=== PATIENT | female | born 1955 | race Caucasian/White ===

== ENCOUNTER 2016-08-10 15:08 | Emergency (ER) | payer OTHER ==
[~2016-08-10 15:08] MED LIST: ASPI1TAB7 PO; CYMB30CA PO; LEVO112T2 PO; LISI-363 PO; TYLE500T PO
[2016-08-10 15:11] VITALS: BP 131/85; PULSE 70; RESP 16; TEMP 98.1; O2SAT 97
[2016-08-10] MEDS ORDERED: SODIUM CHLOR 0.9% 1000 ML INJ 1,000 ML IV ONE ×2 (15:21→16:45)
[2016-08-10] MEDS ORDERED: KETOROLAC TROMETHAMINE 30 MG/ML (IVP) VIAL IVP ONE (15:30)
[2016-08-10] MEDS ORDERED: SODIUM CHLORIDE 0.9% FLUSH 5 ML FLUSH IVF PRN (15:30)
--- NOTE | 2016-08-10 15:39 | PD ---
HPI Chief Complaint: Flank/Kidney Pain Time Seen by Provider: 15:21 Travel History International Travel<30 days: No Contact w/Intl Traveler<30days: No Traveled to known affect area: No History of Present Illness HPI 60 y/o female presents with back pain over the past couple of days. She has history of kidney stones. She denies other associated symptoms with this. She states that this feels similar to prior kidney stones. Quality pain is sharp. Severity is moderate. Pain is worse with movement. She denies other modifying factors. She states she does also have history of fibromyalgia. PFSH Past Medical History Diabetes: Yes (diet control) Diminished Hearing: No Hypertension: Yes Kidney Stones: Yes Respiratory: No Thyroid Disease: Yes (hypothyroid) Past Surgical History Cholecystectomy: Yes Endocrine Surgery: Yes (THYROIDECTOMY) Genitourinary Surgery: Yes (KIDNEY STONE) Gynecologic Surgery: Yes (C SECTION, BREAST TUMOR 1985) Social History Alcohol Use: No Tobacco Use: No Substance Use: No Allergies-Medications (Allergen,Severity, Reaction): Coded Allergies: Hydrochlorothiazide (Unverified Allergy, Severe, lip swelling, 08/10/16) Tamsulosin (Verified Allergy, Severe, 08/10/16) Sulfa (Unverified Allergy, Mild, 08/10/16) Reported Meds & Prescriptions Reported Meds & Active Scripts Active Percocet (Oxycodone-Acetaminophen) 5-325 mg Tab 1 Tab PO Q6H PRN Reported Lisinopril 20 Mg Tab 20 Mg PO DAILY Levothyroxine (Levothyroxine Sodium) 112 Mcg Tab 112 Mcg PO DAILY Vitamin D3 (Cholecalciferol) 1,000 Unit Chew 1,000 Units PO DAILY Omeprazole 20 Mg Tab 20 Mg PO DAILY Review of Systems Except as stated in HPI: all other systems reviewed are Neg Physical Exam Narrative GENERAL: Well-nourished, well-developed patient. SKIN: Warm and dry. HEAD: Normocephalic and atraumatic. EYES: No injection or drainage. ENT: No nasal drainage noted. NECK: Supple, trachea midline. CARDIOVASCULAR: Regular rate and rhythm RESPIRATORY: Breath sounds equal bilaterally. No accessory muscle use. GASTROINTESTINAL: Abdomen soft, non-tender, nondistended. BACK: Nontender without obvious deformity in midline, no CVA tenderness. NEUROLOGICAL: Awake and alert. Motor and sensory grossly within normal limits. Normal speech. Data Data Last Documented VS Vital Signs Date Time Temp Pulse Resp B/P Pulse Ox O2 Delivery O2 Flow Rate FiO2 08/10/16 15:49 65 16 121/60 97 Room Air 08/10/16 15:11 98.1 Orders Complete Blood Count With Diff (08/10/16 15:21) Comprehensive Metabolic Panel (08/10/16 15:21) Urinalysis - C+S If Indicated (08/10/16 15:21) Ct Abd/Pel W/O Iv Contrast (08/10/16 15:21) Ecg Monitoring (08/10/16 15:21) Iv Access Insert/Monitor (08/10/16 15:21) Ketorolac Inj (Toradol Inj) (08/10/16 15:30) Sodium Chloride 0.9% Flush (Ns Flush) (08/10/16 15:30) Sodium Chlor 0.9% 1000 Ml Inj (Ns 1000 M (08/10/16 15:21) Sodium Chlor 0.9% 1000 Ml Inj (Ns 1000 M (08/10/16 16:45) Labs Laboratory Tests Test 08/10/16 08/10/16 15:50 16:45 White Blood Count 10.2 TH/MM3 Red Blood Count 4.56 MIL/MM3 Hemoglobin 13.1 GM/DL Hematocrit 39.2 % Mean Corpuscular Volume 86.0 FL Mean Corpuscular Hemoglobin 28.8 PG Mean Corpuscular Hemoglobin 33.5 % Concent Red Cell Distribution Width 13.9 % Platelet Count 235 TH/MM3 Mean Platelet Volume 7.9 FL Neutrophils (%) (Auto) 58.9 % Lymphocytes (%) (Auto) 29.3 % Monocytes (%) (Auto) 9.0 % Eosinophils (%) (Auto) 1.9 % Basophils (%) (Auto) 0.9 % Neutrophils # (Auto) 6.0 TH/MM3 Lymphocytes # (Auto) 3.0 TH/MM3 Monocytes # (Auto) 0.9 TH/MM3 Eosinophils # (Auto) 0.2 TH/MM3 Basophils # (Auto) 0.1 TH/MM3 CBC Comment DIFF FINAL Differential Comment Sodium Level 137 MEQ/L Potassium Level 4.3 MEQ/L Chloride Level 106 MEQ/L Carbon Dioxide Level 23.4 MEQ/L Anion Gap 8 MEQ/L Blood Urea Nitrogen 16 MG/DL Creatinine 0.70 MG/DL Estimat Glomerular Filtration 85 ML/MIN Rate Random Glucose 88 MG/DL Calcium Level 9.0 MG/DL Total Bilirubin 0.3 MG/DL Aspartate Amino Transf 19 U/L (AST/SGOT) Alanine Aminotransferase 33 U/L (ALT/SGPT) Alkaline Phosphatase 106 U/L Total Protein 7.8 GM/DL Albumin 3.4 GM/DL Urine Color LIGHT-YELLOW Urine Turbidity CLEAR Urine pH 5.5 Urine Specific Helix 1.007 Urine Protein NEG mg/dL Urine Glucose (UA) NEG mg/dL Urine Ketones NEG mg/dL Urine Occult Blood SMALL Urine Nitrite NEG Urine Bilirubin NEG Urine Urobilinogen LESS THAN 2.0 MG/DL Urine Leukocyte Esterase NEG Urine RBC 5 /hpf Urine WBC LESS THAN 1 /hpf Urine Squamous Epithelial 1 /hpf Cells Urine Bacteria RARE /hpf Microscopic Urinalysis Comment CULT NOT INDICATED MDM Medical Decision Making Medical Screen Exam Complete: Yes Emergency Medical Condition: Yes Medical Record Reviewed: Yes (past history confirmed) Interpretation(s) CBC & BMP Diagram 08/10/16 15:50 Last 24 hours Impressions Abdomen/Pelvis CT 08/10/16 1521 Signed Impressions: Service Date/Time: Friday, August 10, 2016 15:51 - CONCLUSION: 1. Approximately 4.5 mm x 3.5 mm calculus in the proximal left ureter with a minimal left-sided obstructive uropathy and mild hydronephrosis. No significant perinephric stranding. No other renal or ureteral calculi identified. Davie Mata MD Differential Diagnosis Musculoskeletal, UTI, kidney stone Narrative Course Will check blood work, urinalysis, CT scan abdominal pelvis and dose with Toradol and reevaluate Patient with left proximal ureteral stone. Pain is improved. No emesis here. Patient denies any new complaints and states that they are feeling better. Patient happy with care, all questions answered. Patient knows that follow up is incumbent on them and to return to the emergency room immediately if new or worsening symptoms develop. Patient given strict return precautions, vitals reviewed and are normal, agrees to further workup as an outpatient. Given allergies will hold Flomax and will provide with Percocet for pain control Diagnosis Primary Impression: Kidney stone on left side Referrals: Urologist call for appointment Patient Instructions: General Instructions Additional Instructions: Return as needed, Percocet as needed for severe pain, keep hydrated, strain urine Med/Other Pt SpecificInfo: Prescription(s) given Scripts Oxycodone-Acetaminophen (Percocet)5-325 mg Tab1 Tab PO Q6H PRN (PAIN) #15 TAB Prov:Susie White MD 08/10/16 Disposition: 01 DISCHARGE HOME Condition: Stable Susie White MD Aug 10, 2016 15:38 Susie White MD Aug 10, 2016 15:38
[2016-08-10] MEDS ORDERED: LISI-515 PO (15:47)
[2016-08-10] MEDS ORDERED: LEVO-168 PO (15:47)
[2016-08-10] MEDS ORDERED: CHOL100025 PO (15:47)
[2016-08-10] MEDS ORDERED: OMEP20TA PO (15:47)
[2016-08-10 15:49] VITALS: BP 121/60; PULSE 65; RESP 16; O2SAT 97
[2016-08-10 15:59] LABS: BASOPHIL # 0.1 TH/MM3 (0-0.2); BASOPHIL % 0.9 % (0.0-2.0); EOSINOPHIL # 0.2 TH/MM3 (0-0.4); EOSINOPHIL % 1.9 % (0.0-4.0); HEMATOCRIT 39.2 % (35.0-46.0); HEMO FLAGS DIFF FINAL; LYMPH % 29.3 % (9.0-44.0); MEAN CORPUSCULAR HEMOGLOBIN 28.8 PG (27.0-34.0); MEAN CORPUSCULAR HGB CONC 33.5 % (32.0-36.0); NEUT % 58.9 % (16.0-70.0); PLATELET COUNT 235 TH/MM3 (150-450); RED BLOOD COUNT 4.56 MIL/MM3 (4.00-5.30); RED CELL DISTRIBUTION WIDTH 13.9 % (11.6-17.2); WHITE BLOOD COUNT 10.2 TH/MM3 (4.0-11.0)
[2016-08-10 16:15] LABS: ALT (GPT) 33 U/L (10-53); ANION GAP 8 MEQ/L (5-15); AST (GOT) 19 U/L (15-37); BICARBONATE 23.4 MEQ/L (21.0-32.0); BLOOD UREA NITROGEN 16 MG/DL (7-18); CHLORIDE 106 MEQ/L (98-107); GLOMERULAR FILTRATION RATE 85 ML/MIN (>89); POTASSIUM 4.3 MEQ/L (3.5-5.1); SODIUM (NA) 137 MEQ/L (136-145)
[2016-08-10 16:17] LABS: ALKALINE PHOSPHATASE 106 U/L (45-117); TOTAL BILIRUBIN ADULT 0.3 MG/DL (0.2-1.0)
--- NOTE | 2016-08-10 16:17 | RADRPT ---
EXAM DATE/TIME: 08/10/2016 15:51 [facility] COMPARISON: No previous studies available for comparison. INDICATIONS : Left flank pain, history of renal calculi. ORAL CONTRAST: No oral contrast ingested. RADIATION DOSE: 20.59 CTDIvol (mGy) MEDICAL HISTORY : Renal calculi. Hypertension. Diabetes mellitus type 2. SURGICAL HISTORY : Cholecystectomy. section. ENCOUNTER: Initial ACUITY: 3 days PAIN SCALE: 7/10 LOCATION: Left flank TECHNIQUE: Volumetric scanning of the abdomen and pelvis was performed. Using automated exposure control and ad justment of the mA and/or kV according to patient size, radiation dose was kept as low as reasonably achievable to obtain optimal diagnostic quality images. FINDINGS: Bases are clear. No acute findings in the visualized liver, spleen, adrenals, right kidney or pancrea s. There is an approximately 4.5 mm x 3.5 mm calculus in the proximal left ureter with mild left hydr onephrosis and obstructive uropathy. No other ureteral or bladder calculi are identified. No free flu id. No adenopathy. CONCLUSION: 1. Approximately 4.5 mm x 3.5 mm calculus in the proximal left ureter with a minimal left-sided obstr uctive uropathy and mild hydronephrosis. No significant perinephric stranding. No other renal or uret eral calculi identified. Davie Mata MD on August 10, 2016 at 16:10 Board Certified Radiologist. This report was verified electronically.
[2016-08-10 17:12] LABS: BACTERIA, URINE RARE /hpf; BLOOD, URINE SMALL (NEG); COMMENT (UR) CULT NOT INDICATED; CULTURE IF INDICATED CULT NOT INDICATED; GLUCOSE,URINE NEG (NEG); KETONE, URINE NEG (NEG); NITRITE,URINE NEG (NEG); PH, URINE 5.5 (5.0-8.5); SQUAMOUS EPITHELIAL CELL URINE 1 /hpf (0-5); URINE COLOR LIGHT-YELLOW (YELLW/STRAW)
[2016-08-10] MEDS ORDERED: PERC5TAB12 PO (17:19)
[2016-08-10 18:36] VITALS: BP 125/72; PULSE 68; RESP 16; O2SAT 98
[2016-08-11] MEDS ORDERED: ACET-703 PO (09:52)
[2016-08-11] MEDS ORDERED: PERC5TAB12 PO (12:51)
[2016-10-16] MEDS ORDERED: VITA10004 PO (09:33)
[2016-10-25] MEDS ORDERED: TETA1INJ6 IM (12:22)
[2016-10-25] MEDS ORDERED: AMLO5TAB2 PO (12:22)
[2016-10-25] MEDS ORDERED: CIPRHC10A RIGHT EAR (12:22)
[2016-10-25] MEDS ORDERED: VENTAER INH (12:22)
[2016-10-25] MEDS ORDERED: LORA-361 PO (12:22)
[2016-10-29] MEDS ORDERED: AMLO5TAB2 PO (09:14)
[2016-11-29] MEDS ORDERED: CLAR10CA3 PO (08:18)
[2016-11-29] MEDS ORDERED: ACET-822 (08:18)
[2016-11-29] MEDS ORDERED: DULO1CAP2 PO (09:04)
[2016-12-16] MEDS ORDERED: AMLO10TA2 PO (09:04)
[2016-12-16] MEDS ORDERED: LEVO-168 PO (09:04)
== END 2016-08-10 18:37 | disposition home or self-care (01) ==
LOC: NEPA 15:08
DX: I10 Essential (primary) hypertension (principal); N20.0 Calculus of kidney
CPT/HCPCS: 74176; 80053; 81001; 85025; 96361; 96374; 99284; J1885; J7030

== ENCOUNTER 2016-08-11 08:09 | Emergency (ER) | payer OTHER ==
[~2016-08-11] VITALS: Ht 152.4 cm; Wt 100.0 kg
[~2016-08-11 08:09] MED LIST changes: -ASPI1TAB7 PO; +CHOL100025 PO; -CYMB30CA PO; +LEVO-168 PO; -LEVO112T2 PO; -LISI-363 PO; +LISI-515 PO; +OMEP20TA PO; +PERC5TAB12 PO; -TYLE500T PO
[2016-08-11 08:10] VITALS: BP 132/61; PULSE 61; RESP 18; O2SAT 98
[2016-08-11 08:11] VITALS: BP 184/98; PULSE 124; RESP 24; TEMP 98.3; O2SAT 95
[2016-08-11] MEDS ORDERED: SODIUM CHLOR 0.9% 1000 ML INJ 1,000 ML IV ONE (08:19)
--- NOTE | 2016-08-11 08:22 | PD ---
HPI Chief Complaint: Flank/Kidney Pain Time Seen by Provider: 08:17 Travel History International Travel<30 days: No Contact w/Intl Traveler<30days: No Traveled to known affect area: No History of Present Illness HPI This is a 60-year-old female who was seen yesterday for renal lithiasis, presents today with points of exacerbated pain. The patient states that she did not get her prescription filled for her Percocet that was prescribed yesterday. She reports severe pain in her left flank. No reported fevers, chills. PFSH Past Medical History Diabetes: Yes (diet control) Diminished Hearing: No Hypertension: Yes Kidney Stones: Yes Respiratory: No Thyroid Disease: Yes (hypothyroid) Past Surgical History Cholecystectomy: Yes Endocrine Surgery: Yes (THYROIDECTOMY) Genitourinary Surgery: Yes (KIDNEY STONE) Gynecologic Surgery: Yes (C SECTION, BREAST TUMOR 1985) Social History Alcohol Use: No Tobacco Use: No Substance Use: No Allergies-Medications (Allergen,Severity, Reaction): Coded Allergies: Hydrochlorothiazide (Unverified Allergy, Severe, lip swelling, 08/10/16) Tamsulosin (Verified Allergy, Severe, 08/10/16) Sulfa (Unverified Allergy, Mild, 08/10/16) Reported Meds & Prescriptions Reported Meds & Active Scripts Active Percocet (Oxycodone-Acetaminophen) 5-325 mg Tab 1 Tab PO Q6H PRN Reported Tylenol Extra Strength (Acetaminophen) 500 Mg Tab 1,000 Mg PO Q6HR PRN Lisinopril 20 Mg Tab 20 Mg PO DAILY Levothyroxine (Levothyroxine Sodium) 112 Mcg Tab 112 Mcg PO DAILY Vitamin D3 (Cholecalciferol) 1,000 Unit Chew 1,000 Units PO DAILY Omeprazole 20 Mg Tab 20 Mg PO DAILY Review of Systems Except as stated in HPI: all other systems reviewed are Neg General / Constitutional: No: Fever, Chills Gastrointestinal: Positive: Nausea, No: Vomiting Genitourinary: Positive: Flank Pain (flank), Other (history of renal colic) Musculoskeletal: Positive: Pain (left flank) Physical Exam Narrative GENERAL: Well-nourished, well-developed patient in obvious pain.. SKIN: Warm and dry. HEAD: Normocephalic/atraumatic. EYES: No scleral icterus. No injection or drainage. NECK: Supple, trachea midline. GASTROINTESTINAL: Abdomen soft, non-tender, nondistended. MUSCULOSKELETAL: Subjective left flank pain. BACK: Subjective left CVA pain. There is no tenderness on palpation. The patient states it's deep. Data Data Last Documented VS Vital Signs Date Time Temp Pulse Resp B/P Pulse Ox O2 Delivery O2 Flow Rate FiO2 08/11/16 10:00 68 17 133/64 97 Room Air 08/11/16 08:11 98.3 Orders Ecg Monitoring (08/11/16 08:19) Iv Access Insert/Monitor (08/11/16 08:19) Ketorolac Inj (Toradol Inj) (08/11/16 08:30) Ondansetron Inj (Zofran Inj) (08/11/16 08:30) Sodium Chloride 0.9% Flush (Ns Flush) (08/11/16 08:30) Sodium Chlor 0.9% 1000 Ml Inj (Ns 1000 M (08/11/16 08:19) Hydromorphone Pf Inj (Dilaudid Pf Inj) (08/11/16 09:30) MDM Medical Decision Making Medical Screen Exam Complete: Yes Emergency Medical Condition: Yes Differential Diagnosis Exacerbation of left ureteral calculus versus pyelonephritis versus muscle skeletal pain Narrative Course 6-year-old female with a history of kidney stones, seen yesterday diagnosed with a left ureteral calculus that was more than 5 mm, who presents with exacerbation of pain. The patient states that she did not fill her Percocet prescription that was prescribed yesterday because the pharmacy was closed. She reports pain and nausea. She states the pain is exactly like it was yesterday. She's been given Toradol 30 motor ID V times one dose followed by normal saline and 1 mg of Dilaudid. She is pain-free at this time. She wishes to be discharged home. She has misplaced her prescription so I will rewrite it. She is instructed to follow up with her urologist of her choice. Diagnosis Primary Impression: Kidney stone on left side Additional Impression: Left flank pain Additional Instructions: Drink plenty of fluid. Med/Other Pt SpecificInfo: Prescription(s) given Scripts Oxycodone-Acetaminophen (Percocet)5-325 mg Tab1 Tab PO Q6H PRN (PAIN) #15 TAB Prov:Dominic Olson MD 08/11/16 Disposition: 01 DISCHARGE HOME Condition: Stable Dominic Olson MD Aug 11, 2016 08:22
[2016-08-11] MEDS ORDERED: SODIUM CHLORIDE 0.9% FLUSH 5 ML FLUSH IVF PRN (08:30)
[2016-08-11] MEDS ORDERED: ONDANSETRON HCL 4 MG/2 ML VIAL IVP ONE (08:30)
[2016-08-11] MEDS ORDERED: KETOROLAC TROMETHAMINE 30 MG/ML (IVP) VIAL IVP ONE (08:30)
[2016-08-11] MEDS ORDERED: HYDROmorphone HCL PF 1 MG/ML VIAL IV PUSH ONE (09:30)
[2016-08-11] MEDS ORDERED: ACET-703 PO (09:52)
[2016-08-11 10:00] VITALS: BP 133/64; PULSE 68; RESP 17; O2SAT 97
[2016-08-11 12:00] VITALS: BP 130/75; PULSE 71; RESP 18; O2SAT 99
[2016-08-11] MEDS ORDERED: PERC5TAB12 PO (12:51)
[2016-08-11 13:29] VITALS: BP 129/72
[2016-10-16] MEDS ORDERED: VITA10004 PO (09:33)
[2016-10-25] MEDS ORDERED: LORA-361 PO (12:22)
[2016-10-25] MEDS ORDERED: AMLO5TAB2 PO (12:22)
[2016-10-25] MEDS ORDERED: TETA1INJ6 IM (12:22)
[2016-10-25] MEDS ORDERED: CIPRHC10A RIGHT EAR (12:22)
[2016-10-25] MEDS ORDERED: VENTAER INH (12:22)
[2016-10-29] MEDS ORDERED: AMLO5TAB2 PO (09:14)
[2016-11-29] MEDS ORDERED: CLAR10CA3 PO (08:18)
[2016-11-29] MEDS ORDERED: ACET-822 (08:18)
[2016-11-29] MEDS ORDERED: DULO1CAP2 PO (09:04)
[2016-12-16] MEDS ORDERED: AMLO10TA2 PO (09:04)
[2016-12-16] MEDS ORDERED: LEVO-168 PO (09:04)
== END 2016-08-11 13:30 | disposition home or self-care (01) ==
LOC: NEPE 08:09
DX: N20.0 Calculus of kidney (principal); E11.9 Type 2 diabetes mellitus without complications; I10 Essential (primary) hypertension; E03.9 Hypothyroidism, unspecified; Z87.442 Personal history of urinary calculi
CPT/HCPCS: 96361; 96374; 96375; 99283; J1170; J1885; J2405; J7030

== ENCOUNTER 2016-08-12 16:26 | Inpatient (IN) | payer OTHER ==
[~2016-08-12] VITALS: Ht 160 cm; Wt 100.0 kg
[~2016-08-12 16:26] MED LIST changes: +ACET-703 PO
[2016-08-12 16:27] VITALS: BP 160/70; PULSE 74; RESP 24; TEMP 97.6; O2SAT 97
[2016-08-12] MEDS ORDERED: ONDANSETRON HCL 4 MG/2 ML VIAL IM ONE (18:15)
[2016-08-12] MEDS ORDERED: KETOROLAC TROMETHAMINE 60 MG/2 ML (IM) VIAL IM ONE (18:15)
[2016-08-12 18:57] LABS: APTT (PATIENT) 28.1 SEC (24.3-30.1); PROTHROMBIN TIME - PATIENT 10.7 SEC (9.8-11.6)
[2016-08-12 19:06] LABS: AUTOMATED NEUTROPHIL # 12.6 TH/MM3 (1.8-7.7); BASOPHIL # 0.1 TH/MM3 (0-0.2); BASOPHIL % 0.5 % (0.0-2.0); EOSINOPHIL % 0.3 % (0.0-4.0); HEMATOCRIT 35.6 % (35.0-46.0); HEMO FLAGS DIFF FINAL; LYMPH % 9.7 % (9.0-44.0); LYMPHOCYTE # 1.5 TH/MM3 (1.0-4.8); MEAN CELL VOLUME 85.7 FL (80.0-100.0); MEAN CORPUSCULAR HEMOGLOBIN 28.7 PG (27.0-34.0); MEAN CORPUSCULAR HGB CONC 33.5 % (32.0-36.0); NEUT % 82.5 % (16.0-70.0); PLATELET COUNT 217 TH/MM3 (150-450); RED BLOOD COUNT 4.16 MIL/MM3 (4.00-5.30); RED CELL DISTRIBUTION WIDTH 14.2 % (11.6-17.2); WHITE BLOOD COUNT 15.2 TH/MM3 (4.0-11.0)
[2016-08-12 19:07] LABS: ANION GAP 7 MEQ/L (5-15); AST (GOT) 33 U/L (15-37); BICARBONATE 25.1 MEQ/L (21.0-32.0); BLOOD UREA NITROGEN 23 MG/DL (7-18); CHLORIDE 104 MEQ/L (98-107); GLOMERULAR FILTRATION RATE 41 ML/MIN (>89); POTASSIUM 4.5 MEQ/L (3.5-5.1); SODIUM (NA) 136 MEQ/L (136-145)
[2016-08-12 19:11] LABS: ALKALINE PHOSPHATASE 117 U/L (45-117); ALT (GPT) 62 U/L (10-53); TOTAL BILIRUBIN ADULT 0.3 MG/DL (0.2-1.0)
--- NOTE | 2016-08-12 19:36 | RADRPT ---
EXAM DATE/TIME: 08/12/2016 19:13 [facility] COMPARISON: CT ABDOMEN & PELVIS W/O CONTRAST, August 10, 2016, 15:51. INDICATIONS : Left flank pain past 3 days. ORAL CONTRAST: No oral contrast ingested. RADIATION DOSE: 13.33 CTDIvol (mGy) MEDICAL HISTORY : Cardiovascular disease. Hypertension. Diabetes mellitus type 2. SURGICAL HISTORY : Cholecystectomy. ENCOUNTER: Subsequent ACUITY: 3 days PAIN SCALE: 10/10 LOCATION: Left flank TECHNIQUE: Volumetric scanning of the abdomen and pelvis was performed. Using automated exposure control and ad justment of the mA and/or kV according to patient size, radiation dose was kept as low as reasonably achievable to obtain optimal diagnostic quality images. FINDINGS: LOWER LUNGS: The visualized lower lungs are clear. LIVER: Homogeneous density without lesion. There is no dilation of the biliary tree. No calcified gallston es. SPLEEN: Normal size without lesion. PANCREAS: Within normal limits. KIDNEYS: The 4 mm stone of the left ureter has migrated distal. It is now at the level of the UVJ. There is mo derate hydronephrosis/hydroureter. Left kidney is now mildly swollen and there is mild perinephric ed jennifer. ADRENAL GLANDS: Within normal limits. VASCULAR: There is no aortic aneurysm. BOWEL/MESENTERY: The stomach, small bowel, and colon demonstrate no acute abnormality. There is no free intraperitone al air or fluid. The appendix is well-visualized and normal. ABDOMINAL WALL: Within normal limits. RETROPERITONEUM: There is no lymphadenopathy. BLADDER: No wall thickening or mass. REPRODUCTIVE: Within normal limits. INGUINAL: There is no lymphadenopathy or hernia. MUSCULOSKELETAL: Within normal limits for patient age. CONCLUSION: 4 mm known left ureteral stone is now at the UVJ causing moderate obstructive uropathy worse than a f ew days ago. The obstructive uropathy includes swelling and perinephric edema of the left kidney.. Wale Wright MD on August 12, 2016 at 19:32 Board Certified Radiologist. This report was verified electronically.
--- NOTE | 2016-08-12 20:02 | PD ---
HPI Chief Complaint: Flank/Kidney Pain Time Seen by Provider: 17:00 Travel History International Travel<30 days: No Contact w/Intl Traveler<30days: No Traveled to known affect area: No History of Present Illness HPI Patient is a 60-year-old female presenting to the emergency department for the third time in 3 days. Patient was diagnosed with a left kidney stone on the . She came back on the 2 and then again today. Daughter states that she's been vomiting since 2 PM this afternoon. Patient states that she's not been urinating. The pain has increased in her back and her lower abdomen. Patient is writhing in pain currently, she states the pain is a 10 out of 10. PFSH Past Medical History Cardiovascular Problems: Yes ([place], [place]) Diabetes: Yes Diminished Hearing: No Hypertension: Yes Kidney Stones: Yes Respiratory: No Thyroid Disease: Yes (hypothyroid) Past Surgical History Section: Yes Cholecystectomy: Yes Endocrine Surgery: Yes (THYROIDECTOMY) Genitourinary Surgery: Yes (KIDNEY STONE) Gynecologic Surgery: Yes (BREAST TUMOR 1985) Social History Alcohol Use: No Tobacco Use: No Substance Use: No Allergies-Medications (Allergen,Severity, Reaction): Coded Allergies: Hydrochlorothiazide (Unverified Allergy, Severe, lip swelling, 08/12/16) Tamsulosin (Verified Allergy, Severe, 08/12/16) Sulfa (Unverified Allergy, Mild, 08/12/16) Reported Meds & Prescriptions Reported Meds & Active Scripts Active Percocet (Oxycodone-Acetaminophen) 5-325 mg Tab 1 Tab PO Q6H PRN Reported Tylenol Extra Strength (Acetaminophen) 500 Mg Tab 1,000 Mg PO Q6HR PRN Lisinopril 20 Mg Tab 20 Mg PO DAILY Levothyroxine (Levothyroxine Sodium) 112 Mcg Tab 112 Mcg PO DAILY Vitamin D3 (Cholecalciferol) 1,000 Unit Chew 1,000 Units PO DAILY Omeprazole 20 Mg Tab 20 Mg PO DAILY Review of Systems Except as stated in HPI: all other systems reviewed are Neg Gastrointestinal: Positive: Nausea, Vomiting, Abdominal Pain Genitourinary: Positive: Decreased Urinary Output, Pelvic Pain, Flank Pain Musculoskeletal: Positive: Pain Physical Exam Narrative GENERAL: Obese, well-developed, alert female. Appears uncomfortable, in no acute distress. SKIN: Warm and dry. HEAD: Atraumatic. Normocephalic. EYES: Pupils equal and round. No scleral icterus. No injection or drainage. ENT: No nasal bleeding or discharge. Mucous membranes pink and moist. NECK: Trachea midline. No JVD. CARDIOVASCULAR: Regular rate and rhythm. No murmur appreciated. RESPIRATORY: No accessory muscle use. Clear to auscultation. Breath sounds equal bilaterally. GASTROINTESTINAL: Abdomen soft, tender to palpation in suprapubic region, nondistended. Hepatic and splenic margins not palpable. The bowel sounds, no rebound, guarding. MUSCULOSKELETAL: No obvious deformities. No clubbing. No cyanosis. No edema. Positive CVAT on the left. NEUROLOGICAL: Awake and alert. No obvious cranial nerve deficits. Motor grossly within normal limits. Normal speech. PSYCHIATRIC: Appropriate mood and affect; insight and judgment normal. Data Data Last Documented VS Vital Signs Date Time Temp Pulse Resp B/P Pulse Ox O2 Delivery O2 Flow Rate FiO2 08/12/16 20:16 72 16 151/72 97 Room Air 08/12/16 16:27 97.6 Orders Ketorolac Inj (Toradol Inj) (08/12/16 18:15) Ondansetron Inj (Zofran Inj) (08/12/16 18:15) Ct Abd/Pel W/O Iv Contrast (08/12/16 ) Complete Blood Count With Diff (08/12/16 18:12) Comprehensive Metabolic Panel (08/12/16 18:12) Act Partial Throm Time (Ptt) (08/12/16 18:12) Prothrombin Time / Inr (Pt) (08/12/16 18:12) Iv Access Insert/Monitor (08/12/16 19:50) Labs Laboratory Tests Test 08/12/16 18:29 White Blood Count 15.2 TH/MM3 Red Blood Count 4.16 MIL/MM3 Hemoglobin 12.0 GM/DL Hematocrit 35.6 % Mean Corpuscular Volume 85.7 FL Mean Corpuscular Hemoglobin 28.7 PG Mean Corpuscular Hemoglobin 33.5 % Concent Red Cell Distribution Width 14.2 % Platelet Count 217 TH/MM3 Mean Platelet Volume 8.5 FL Neutrophils (%) (Auto) 82.5 % Lymphocytes (%) (Auto) 9.7 % Monocytes (%) (Auto) 7.0 % Eosinophils (%) (Auto) 0.3 % Basophils (%) (Auto) 0.5 % Neutrophils # (Auto) 12.6 TH/MM3 Lymphocytes # (Auto) 1.5 TH/MM3 Monocytes # (Auto) 1.1 TH/MM3 Eosinophils # (Auto) 0.0 TH/MM3 Basophils # (Auto) 0.1 TH/MM3 CBC Comment DIFF FINAL Differential Comment Prothrombin Time 10.7 SEC Prothromb Time International 1.0 RATIO Ratio Activated Partial 28.1 SEC Thromboplast Time Sodium Level 136 MEQ/L Potassium Level 4.5 MEQ/L Chloride Level 104 MEQ/L Carbon Dioxide Level 25.1 MEQ/L Anion Gap 7 MEQ/L Blood Urea Nitrogen 23 MG/DL Creatinine 1.33 MG/DL Estimat Glomerular Filtration 41 ML/MIN Rate Random Glucose 114 MG/DL Calcium Level 8.6 MG/DL Total Bilirubin 0.3 MG/DL Aspartate Amino Transf 33 U/L (AST/SGOT) Alanine Aminotransferase 62 U/L (ALT/SGPT) Alkaline Phosphatase 117 U/L Total Protein 7.9 GM/DL Albumin 3.5 GM/DL MDM Medical Decision Making Medical Screen Exam Complete: Yes Emergency Medical Condition: Yes Medical Record Reviewed: Yes Interpretation(s) Last Impressions Abdomen/Pelvis CT 08/12/16 0000 Signed Impressions: Service Date/Time: Friday, August 12, 2016 19:13 - CONCLUSION: 4 mm known left ureteral stone is now at the UVJ causing moderate obstructive uropathy worse than a few days ago. The obstructive uropathy includes swelling and perinephric edema of the left kidney.. Wale Wright MD Laboratory Tests Test 08/12/16 18:29 White Blood Count 15.2 TH/MM3 Red Blood Count 4.16 MIL/MM3 Hemoglobin 12.0 GM/DL Hematocrit 35.6 % Mean Corpuscular Volume 85.7 FL Mean Corpuscular Hemoglobin 28.7 PG Mean Corpuscular Hemoglobin 33.5 % Concent Red Cell Distribution Width 14.2 % Platelet Count 217 TH/MM3 Mean Platelet Volume 8.5 FL Neutrophils (%) (Auto) 82.5 % Lymphocytes (%) (Auto) 9.7 % Monocytes (%) (Auto) 7.0 % Eosinophils (%) (Auto) 0.3 % Basophils (%) (Auto) 0.5 % Neutrophils # (Auto) 12.6 TH/MM3 Lymphocytes # (Auto) 1.5 TH/MM3 Monocytes # (Auto) 1.1 TH/MM3 Eosinophils # (Auto) 0.0 TH/MM3 Basophils # (Auto) 0.1 TH/MM3 CBC Comment DIFF FINAL Differential Comment Prothrombin Time 10.7 SEC Prothromb Time International 1.0 RATIO Ratio Activated Partial 28.1 SEC Thromboplast Time Sodium Level 136 MEQ/L Potassium Level 4.5 MEQ/L Chloride Level 104 MEQ/L Carbon Dioxide Level 25.1 MEQ/L Anion Gap 7 MEQ/L Blood Urea Nitrogen 23 MG/DL Creatinine 1.33 MG/DL Estimat Glomerular Filtration 41 ML/MIN Rate Random Glucose 114 MG/DL Calcium Level 8.6 MG/DL Total Bilirubin 0.3 MG/DL Aspartate Amino Transf 33 U/L (AST/SGOT) Alanine Aminotransferase 62 U/L (ALT/SGPT) Alkaline Phosphatase 117 U/L Total Protein 7.9 GM/DL Albumin 3.5 GM/DL Vital Signs Date Time Temp Pulse Resp B/P Pulse Ox O2 Delivery O2 Flow Rate FiO2 08/12/16 19:20 18 08/12/16 16:33 08/12/16 16:27 97.6 74 24 160/70 97 Room Air Differential Diagnosis Obstruction versus acute kidney injury versus hydronephrosis versus pyelonephritis versus other Narrative Course Patient is a 60-year-old female presenting to emergency for the third time in 3 days with complaint of left flank, abdominal pain, nausea with vomiting. Patient was actively vomiting in the room. Labs and repeat CT scan ordered. CBC with elevated white count with left shift, and BC was normal 2 days ago. Chemistry with elevated BUN and creatinine again also normal [address] scan shows a 4 mm stone at the UVJ causing moderate obstructive uropathy and perinephric stranding. Patient was given IM Toradol and IM Zofran for pain and nausea. Patient's pain was significantly reduced with administration of Toradol. Patient was observed resting comfortably in triage room 3. Daughter at bedside. Discussed findings with patient and daughter. I spoke with Dr. Vance who stated that patient has a 90% chance of passing that stone on her own with adequate fluid hydration, Flomax. He also recommended patient could be admitted for pain control. [facility] paged for admission. Patient transferred to medical bed. Dr. Olson accepted admission. Patient placed under observation for pain control and fluid hydration. Diagnosis Primary Impression: Renal calculus, left Additional Impressions: ELAINA (acute kidney injury) Leukocytosis Qualified Code: D72.829 - Leukocytosis, unspecified type Left flank pain Nausea and vomiting Qualified Code: R11.2 - Non-intractable vomiting with nausea, unspecified vomiting type Admitting Information Admitting Physician Requests: Observation Condition: Stable Valery Palmer Aug 12, 2016 20:02
[2016-08-12 20:16] VITALS: BP 151/72; PULSE 72; RESP 16; O2SAT 97
[2016-08-12] MEDS ORDERED: ONDANSETRON HCL 4 MG/2 ML VIAL IVP PRN (20:45)
[2016-08-12] MEDS ORDERED: NALOXONE HCL 0.4 MG/ML AMP IV PRN (20:45)
[2016-08-12] MEDS ORDERED: SODIUM CHLOR 0.9% 1000 ML INJ 1,000 ML IV ONE (20:45)
[2016-08-12] MEDS ORDERED: MORPHINE SULFATE 4 MG/ML INJ IV PUSH PRN (20:45)
[2016-08-12] MEDS ORDERED: SODIUM CHLORIDE 0.9% FLUSH 5 ML FLUSH FLUSH PRN (20:45)
[2016-08-12] MEDS: SODIUM CHLORIDE 0.9% FLUSH 5 ML FLUSH FLUSH SCH (21:00)
[2016-08-12] MEDS: SODIUM CHLOR 0.9% 1000 ML INJ 1,000 ML IV SCH (21:06)
[2016-08-12 21:36] LABS: BACTERIA, URINE RARE /hpf; BLOOD, URINE SMALL (NEG); COMMENT (UR) CULT NOT INDICATED; CULTURE IF INDICATED CULT NOT INDICATED; GLUCOSE,URINE NEG (NEG); KETONE, URINE NEG (NEG); MUCUS URINE FEW /lpf (OCC); NITRITE,URINE NEG (NEG); PH, URINE 5.5 (5.0-8.5); URINE COLOR LIGHT-YELLOW (YELLW/STRAW)
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
[2016-08-13] VITALS (8 sets, daily range): BP systolic 117–130; BP diastolic 53–70; PULSE 70–86; RESP 17–20; TEMP 95.4–98.3; O2SAT 95–98
[2016-08-13] MEDS ORDERED: HYDROmorphone HCL PF 1 MG/ML VIAL IV PUSH PRN (01:15)
[2016-08-13] MEDS ORDERED: ACETAMINOPHEN/CODEINE 300 MG/30 MG TAB PO ONE (01:15)
[2016-08-13 04:58] LABS: AUTOMATED NEUTROPHIL # 7.4 TH/MM3 (1.8-7.7); BASOPHIL # 0.1 TH/MM3 (0-0.2); BASOPHIL % 0.8 % (0.0-2.0); EOSINOPHIL # 0.1 TH/MM3 (0-0.4); HEMATOCRIT 32.5 % (35.0-46.0); HEMO FLAGS DIFF FINAL; LYMPHOCYTE # 2.6 TH/MM3 (1.0-4.8); MEAN CELL VOLUME 86.4 FL (80.0-100.0); MEAN CORPUSCULAR HEMOGLOBIN 28.1 PG (27.0-34.0); MEAN CORPUSCULAR HGB CONC 32.5 % (32.0-36.0); MONO % 8.4 % (0.0-8.0); NEUT % 66.8 % (16.0-70.0); PLATELET COUNT 181 TH/MM3 (150-450); RED BLOOD COUNT 3.76 MIL/MM3 (4.00-5.30); RED CELL DISTRIBUTION WIDTH 14.3 % (11.6-17.2); WHITE BLOOD COUNT 11.1 TH/MM3 (4.0-11.0)
[2016-08-13 05:27] LABS: BICARBONATE 22.9 MEQ/L (21.0-32.0); POTASSIUM 4.2 MEQ/L (3.5-5.1)
[2016-08-13] MEDS: LEVOTHYROXINE SODIUM 112 MCG TAB PO SCH (05:32)
[2016-08-13] MEDS: SODIUM CHLOR 0.9% 1000 ML INJ 1,000 ML IV SCH ×3 (05:32→22:06)
[2016-08-13] MEDS: PANTOPRAZOLE SOD 20 MG DELAYED RELEASE TAB PO SCH (08:41)
[2016-08-13] MEDS: SODIUM CHLORIDE 0.9% FLUSH 5 ML FLUSH FLUSH SCH ×2 (08:42→21:00)
[2016-08-13] MEDS: DOXAZOSIN MESYLATE 4 MG TAB PO SCH (09:38)
--- NOTE | 2016-08-13 09:53 | RADRPT ---
EXAM DATE/TIME: 08/13/2016 09:20 [facility] COMPARISON: CT ABDOMEN & PELVIS W/O CONTRAST, August 12, 2016, 19:13. INDICATIONS : Calculi MEDICAL HISTORY : Hypertension. Diabetes mellitus type II. SURGICAL HISTORY : Cholecystectomy. Appendectomy. ENCOUNTER: Initial ACUITY: 3 days PAIN SCORE: 4/10 LOCATION: Bilateral abdomen FINDINGS: 2 supine frontal views of the abdomen demonstrate air within bowel in a nonobstructive pattern. No or ganomegaly is visualized. The recent CT demonstrated a 4 mm stone at the left ureterovesical junction . At structures not visualized on this examination. No abnormal densities are visualized overlying th e kidneys. Visualized lung bases are clear. There are degenerative changes of the lumbar spine. CONCLUSION: 1. No acute abdominal abnormality is identified. 2. The 4 mm left UVJ stone identified on yesterday's CT is not appreciated on this examination. Pleas e note that it may not be visualized due to the small size and location. Wale Doss MD on August 13, 2016 at 9:50 Board Certified Radiologist. This report was verified electronically.
--- NOTE | 2016-08-13 13:34 | HHI.PR ---
Subjective Remarks Follow up for left ureteral stone, left perinephric edema. Ms. Linares is doing well. She has some pain but well controlled. No fever, chills. Son at bedside who is helping as a certified physician assistant with patient's approval. Also discussed with daughter on the phone. Objective Vitals Vital Signs Date Time Temp Pulse Resp B/P Pulse Ox O2 Delivery O2 Flow Rate FiO2 08/13/16 12:00 98.3 86 17 120/70 96 08/13/16 08:00 97.3 84 17 125/62 95 08/13/16 04:00 97.9 77 20 117/53 97 08/13/16 01:17 72 08/13/16 00:00 98.0 74 20 119/58 98 08/12/16 20:16 72 16 151/72 97 Room Air 08/12/16 19:20 18 08/12/16 16:33 08/12/16 16:27 97.6 74 24 160/70 97 Room Air I/O 08/12/16 08/12/16 08/12/16 08/13/16 08/13/16 08/13/16 07:00 15:00 23:00 07:00 15:00 23:00 Intake Total 444 ml Output Total 400 ml Balance 44 ml Intake Oral 0 ml IV Total 444 ml Output Urine Total 400 ml Result Diagram: 08/13/16 0425 08/13/16 0425 Imaging Last Impressions Abdomen X-Ray 08/13/16 0000 Signed Impressions: Service Date/Time: Saturday, August 13, 2016 09:20 - CONCLUSION: 1. No acute abdominal abnormality is identified. 2. The 4 mm left UVJ stone identified on yesterday's CT is not appreciated on this examination. Please note that it may not be visualized due to the small size and location. Wale Doss MD Abdomen/Pelvis CT 08/12/16 0000 Signed Impressions: Service Date/Time: Friday, August 12, 2016 19:13 - CONCLUSION: 4 mm known left ureteral stone is now at the UVJ causing moderate obstructive uropathy worse than a few days ago. The obstructive uropathy includes swelling and perinephric edema of the left kidney.. Wale Wright MD Objective Remarks GENERAL: AOx3, NAD. SKIN: Warm and dry. HEAD: Normocephalic. EYES: No scleral icterus. No injection or drainage. NECK: Supple, trachea midline. No JVD or lymphadenopathy. CARDIOVASCULAR: Regular rate and rhythm without murmurs, gallops, or rubs. RESPIRATORY: Breath sounds equal bilaterally. No accessory muscle use. GASTROINTESTINAL: Abdomen soft, non-tender, nondistended. Left CVA tenderness present. MUSCULOSKELETAL: No cyanosis, or edema. BACK: Nontender without obvious deformity. No CVA tenderness. Procedures None. A/P Problem List: (1) Obstructive uropathy ICD Code: N13.9 Status: Acute (2) Nephrolithiasis ICD Code: N20.0 Status: Acute (3) Left flank pain ICD Code: R10.9 Status: Acute (4) Acute renal failure ICD Code: N17.9 Status: Acute (5) Leukocytosis ICD Code: D72.829 Status: Acute (6) Nausea and vomiting ICD Code: R11.2 Status: Acute Assessment and Plan Ms. Linares is a pleasant 60 year old female from [place] with a history of HTN, GA, DM type 2, nephrolithiasis who was admitted on 08/12/2016 due to severe back and lower abdominal pain, oliguria, nausea, vomiting. CT abd/pelvis showed a 4mm known left ureteral stone now at ureteral vesicular junction causing moderate obstructive uropathy with swelling and perinephric edema of the left kidney. She had fever two days prior to this admission. Urology was consulted. - Left ureteral stone - 4mm in size, obstructive causing perinephric edema of the left kidney - Leukocytosis on admission. - Will start patient on Ceftriaxone 1g Q24hrs. - Discussed with Urology (Dr. Vance) who will evaluate patient this evening. - He indicated that there is a 90% chance that stone will pass spontaneously with supportive care. - Continue IV fluid, pain meds and Doxazosin. - Acute kidney injury - likely post renal - Creatinine 1.33 --> 1.55. - Continue to monitor. Hold Lisinopril for now. - Hypothyroidism - Continue 112 microgram Qday. - Headache - acetaminophen as needed. - GERD - continue PPI. Full code. SCDs. Problem Qualifiers (1) Leukocytosis: Qualified Code: D72.829 - Leukocytosis, unspecified type (2) Nausea and vomiting: Qualified Code: R11.2 - Non-intractable vomiting with nausea, unspecified vomiting type Dyan Rob DO Aug 13, 2016 13:34
[2016-08-13] MEDS ORDERED: MAGNESIUM HYDROXIDE SUSP 30 ML CUP PO PRN (14:00)
[2016-08-13] MEDS: cefTRIAXone INJ 1,000 MG in SODIUM CHLORIDE 0.9% INJ 100 ML IV SCH (15:00)
[2016-08-13] MEDS: SENNOSIDES SYRUP 8.8 MG/5 ML CUP PO PRN (15:15)
[2016-08-13] MEDS ORDERED: ACETAMINOPHEN 325 MG TAB PO PRN ×2 (17:00→18:15)
[2016-08-13] MEDS ORDERED: DICLOFENAC SODIUM 25 MG PO SCH (17:30)
[2016-08-13] MEDS ORDERED: oxyCODONE/ACETAMINOPHEN 5 MG/325 MG TAB PO PRN (17:45)
[2016-08-13] MEDS: oxyCODONE/ACETAMINOPHEN 5 MG/325 MG TAB PO PRN ×2 (17:55→22:10)
--- NOTE | 2016-08-13 18:26 | MB ---
cc: SOUMYA FERNÁNDEZ MD DATE OF CONSULTATION 08/13/2016 REASON FOR CONSULTATION 1. Left 4 mm UVJ stone with mild hydronephrosis 2. Recurrent Left flank pain. HISTORY OF THE PRESENT ILLNESS The patient is a 60-year-old female with a history of kidney stones and type 2 diabetes who presented to the emergency department last night for the third time in 3 days for severe left sided lower abdominal pain radiating to her left flank, nausea and vomiting. She was originally diagnosed with a kidney stone back on August 10 2016. She had a repeat CT scan last night due to her worsening pain which showed that the same 4 mm left stone had now migrated to her left UVJ causing moderate hydronephrosis and perinephric stranding. She subsequently was admitted for further evaluation. She does complain of some pain with urination but denies dysuria or hematuria. She previously had passed a stone several years ago and this episode is similar to her stone episode in the past. Currently her pain is much improved. It is mainly in her lower abdomen and describes it as a burning sensation. She has taken one oxycodone earlier today which has helped relieve her pain. She also complains of a headache but denies any recent nausea or vomiting. She denies any previous urinary tract surgery as well. She has not seen a urologist in the past. PAST MEDICAL HISTORY Significant for: 1. Hypertension. 2. Myocardial infarction. 3. Diabetes. 4. Hypothyroidism. 5. Asthma. 6. History of nephritis. PAST SURGICAL HISTORY 1. She has history of cholecystectomy. 2. Cataract surgery. 3. Breast biopsy. 4. Tonsillectomy and adenoidectomy. MEDICATIONS Home medications include: 1. Levothyroxine 120 micrograms p.o. daily. 2. Lisinopril 20 milligrams p.o. daily. 3. Omeprazole 20 milligrams p.o. daily. ALLERGIES HYDROCHLOROTHIAZIDE, TAMSULOSIN AND SULFA. SOCIAL HISTORY Negative for smoking, alcohol and drugs. Lives at home. FAMILY HISTORY Denies urolithiasis, malignancies REVIEW OF SYSTEMS See HPI otherwise; a 12 point review of systems was performed and otherwise negative. PHYSICAL EXAMINATION VITAL SIGNS: Temperature 95.4, pulse 80, respiratory rate 17, blood pressure 130/60, saturation 96% on room air. GENERAL: She is alert and oriented times three in no apparent distress. Pleasant and cooperative lady appears stated age. HEENT: Head is normocephalic, atraumatic. Eyes, no scleral icterus. Extraocular muscles intact. Nose, external nares are normal. NECK: Supple. Trachea is midline. No JVD. LUNGS: Clear to auscultation bilaterally. No wheezes, rhonchi or rales. HEART: Regular rate and rhythm. No murmurs, rubs, or gallops. ABDOMEN: Soft. Obese. Nontender. Nondistended. Positive bowel sounds. No peritoneal signs. GENITOURINARY: No CVA tenderness bilaterally. PELVIC: Examination not indicated at this time. SKIN: No ulcers or rashes. PSYCHIATRIC: Normal affect. MUSCULOSKELETAL: Full range of motion of all four extremities. Normal clubbing, cyanosis or edema. Nontender. LABORATORY DATA Labs show a white count of 11.1 down from 15.2, hemoglobin 10.6, hematocrit 32.5, platelet count 181,000. Sodium 141, potassium 4.2, chloride 110, bicarbonate 22.9, creatinine 1.15 down from 1.33, BUN 20, calcium 8.0. Her urine showed small blood, negative nitrate, negative leukocyte esterase. IMAGING STUDIES CT of the abdomen and pelvis without contrast was reviewed. Agree with radiologist's report. The patient has 4 mm distal left UVJ stone with moderate hydronephrosis and perinephric edema. Her right kidney and ureter appear to be normal. ASSESSMENT The patient is a 60-year-old female with a history of kidney stones presents with three day history of worsening left-sided abdominal pain, nausea, vomiting and found to have a 4 mm distal left ureteral stone with mild hydronephrosis. PLAN The patient is currently very comfortable and has only required one oxycodone for pain today. Due to the patient's stable nontoxic appearance, I recommend a trial of passage of the stone with medical expulsive therapy. Recommend continuing oxycodone for pain, straining all of her urine and adding diclofenac for additional pain control and reducing inflammation and to help pass the stone. Ideally I would like to start her on Flomax to help her pass the stone, but due to her sulfa allergy it is contraindicated at this time. I did start her on doxazosin which could also contribute to help pass the stone. As long as she has no issues overnight, she can be discharged in the morning. She should follow up as an outpatient in four weeks with a renal ultrasound and KUB as she has a very high likelihood of passing the stone. If she has not passed it within the four weeks, then she will require treatment. I also discussed with her and her family requiring a diet stone including increasing her hydration to produce 2.5 liters of urine daily and limiting her sodium intake between 9617-9546 milligrams daily as well as calcium intake from 4527-7940 milligrams daily. Of note she is on calcium supplements which does increase her risk of stone formation in known stone formers and it is best to obtain calcium through diet. MD CHARAN Currie/SIMRAN /5:33 PM /6:01 PM MTDShandra
[2016-08-13] MEDS: HYDROmorphone HCL PF 1 MG/ML VIAL IV PUSH PRN (18:33)
[2016-08-13] MEDS ORDERED: KETOROLAC TROMETHAMINE 10 MG TAB PO PRN (22:00)
[2016-08-14] MEDS: LEVOTHYROXINE SODIUM 112 MCG TAB PO SCH (05:48)
[2016-08-14 08:00] VITALS: BP 120/63; PULSE 64; RESP 18; TEMP 96.6; O2SAT 92
[2016-08-14] MEDS: DOXAZOSIN MESYLATE 4 MG TAB PO SCH ×2 (09:00→09:55)
[2016-08-14] MEDS: SODIUM CHLORIDE 0.9% FLUSH 5 ML FLUSH FLUSH SCH (09:00)
[2016-08-14] MEDS: PANTOPRAZOLE SOD 20 MG DELAYED RELEASE TAB PO SCH (09:55)
[2016-08-14] MEDS: SENNOSIDES SYRUP 8.8 MG/5 ML CUP PO PRN (09:55)
[2016-08-14] MEDS: oxyCODONE/ACETAMINOPHEN 5 MG/325 MG TAB PO PRN ×2 (09:55→18:09)
[2016-08-14] MEDS: HYDROmorphone HCL PF 1 MG/ML VIAL IV PUSH PRN (11:02)
[2016-08-14 12:00] VITALS: BP 120/59; PULSE 69; RESP 19; TEMP 96.5; O2SAT 96
[2016-08-14 13:19] LABS: BICARBONATE 19.3 MEQ/L (21.0-32.0); POTASSIUM 4.7 MEQ/L (3.5-5.1)
[2016-08-14] MEDS: cefTRIAXone INJ 1,000 MG in SODIUM CHLORIDE 0.9% INJ 100 ML IV SCH (14:11)
[2016-08-14] MEDS: SODIUM CHLOR 0.9% 1000 ML INJ 1,000 ML IV SCH (14:12)
[2016-08-14] MEDS ORDERED: DOCUSATE SODIUM 50 MG/SENNA 8.6 MG TAB PO ONE (15:00)
[2016-08-14] MEDS ORDERED: MAGNESIUM HYDROXIDE SUSP 30 ML CUP PO ONE (15:00)
[2016-08-14 16:00] VITALS: BP 140/62; PULSE 67; RESP 18; TEMP 96.3; O2SAT 99
--- NOTE | 2016-08-14 17:20 | HHI.PR ---
Subjective Remarks Official lozenge maker offered, however patient opts to use her daughter as lozenge maker. Patient says that pain is continuing unchanged from yesterday. Still no bowel movement. He feels she is constipated. Objective Vital Signs Date Time Temp Pulse Resp B/P Pulse Ox O2 Delivery O2 Flow Rate FiO2 08/14/16 16:00 96.3 67 18 140/62 99 08/14/16 12:00 96.5 69 19 120/59 96 08/14/16 10:55 16 08/14/16 08:00 96.6 64 18 120/63 92 08/13/16 23:42 97.0 70 18 118/59 95 08/13/16 20:00 96.5 77 18 117/58 95 I/O 08/13/16 08/13/16 08/13/16 08/14/16 08/14/16 08/14/16 07:00 15:00 23:00 07:00 15:00 23:00 Intake Total 444 ml 240 ml 1933 ml 775 ml 500 ml Output Total 400 ml 350 ml 425 ml Balance 44 ml 240 ml 1583 ml 775 ml 75 ml Intake Oral 0 ml 240 ml 360 ml 500 ml IV Total 444 ml 1573 ml 775 ml Output Urine Total 400 ml 350 ml 425 ml # Voids 3 # Bowel Movements 0 0 Result Diagram: 08/13/16 0425 08/14/16 1230 Objective Remarks GENERAL: Sitting up in bed. Appears in mild discomfort. Alert and oriented 3. SKIN: Warm and dry. HEAD: Normocephalic. EYES: No scleral icterus. No injection or drainage. NECK: Supple, trachea midline. No JVD. CARDIOVASCULAR: Regular rate and rhythm without murmurs, gallops, or rubs. RESPIRATORY: Breath sounds equal bilaterally. No accessory muscle use. GASTROINTESTINAL: Abdomen soft, non-tender, nondistended. MUSCULOSKELETAL: No cyanosis, or edema. BACK: Nontender without obvious deformity. No CVA tenderness. A/P Assessment and Plan Ms. Linares is a pleasant 60 year old female from [place] with a history of HTN, [place], DM type 2, nephrolithiasis who was admitted on 08/12/2016 due to severe back and lower abdominal pain, oliguria, nausea, vomiting. CT abd/pelvis showed a 4mm known left ureteral stone now at ureteral vesicular junction causing moderate obstructive uropathy with swelling and perinephric edema of the left kidney. She had fever two days prior to this admission. Urology was consulted. //Left ureteral stone - 4mm in size, obstructive causing perinephric edema of the left kidney - Leukocytosis on admission likely secondary to pain. -Discontinue Ceftriaxone 1g Q24hrs. -Initiate urology consultation. Trial of passage of stone. Patient can likely discharge when pain controlled. We'll need to follow-up with urology as outpatient -Adjust pain medications to avoid daytime somnolence. //Non-anion gap metabolic acidosis. -Likely secondary to acute kidney injury. We'll discontinue fluids. Encourage by mouth intake. Continue to monitor. //Acute kidney injury - likely post renal - Creatinine 1.33 --> 1.15 ==> 1.18 - Continue to monitor. Continue to Hold Lisinopril for now. //Hypothyroidism - Continue 112 microgram Qday. //Constipation. Laxatives ordered. //Headache - acetaminophen as needed. //GERD - continue PPI. Full code. SCDs. Discharge Planning I'll discharge today due to non-anion gap metabolic acidosis. If labs stable or improved, will discharge home tomorrow. Dami Chavez MD Aug 14, 2016 17:20
[2016-08-14 20:00] VITALS: BP 165/74; PULSE 83; RESP 17; TEMP 97; O2SAT 95
[2016-08-14] MEDS ORDERED: HYDROmorphone HCL PF 1 MG/ML VIAL IV PUSH PRN (21:00)
[2016-08-15] VITALS: PULSE 76; RESP 17; TEMP 98.9; O2SAT 97
[2016-08-15 05:59] LABS: AUTOMATED NEUTROPHIL # 7.3 TH/MM3 (1.8-7.7); BASOPHIL % 0.4 % (0.0-2.0); EOSINOPHIL # 0.2 TH/MM3 (0-0.4); EOSINOPHIL % 1.9 % (0.0-4.0); HEMO FLAGS DIFF FINAL; LYMPH % 19.9 % (9.0-44.0); LYMPHOCYTE # 2.1 TH/MM3 (1.0-4.8); MEAN CELL VOLUME 85.8 FL (80.0-100.0); MEAN CORPUSCULAR HEMOGLOBIN 29.1 PG (27.0-34.0); MONO % 9.8 % (0.0-8.0); PLATELET COUNT 166 TH/MM3 (150-450); RED BLOOD COUNT 3.61 MIL/MM3 (4.00-5.30); RED CELL DISTRIBUTION WIDTH 14.2 % (11.6-17.2); WHITE BLOOD COUNT 10.7 TH/MM3 (4.0-11.0)
[2016-08-15 06:32] LABS: BICARBONATE 23.5 MEQ/L (21.0-32.0); MAGNESIUM 2.3 MG/DL (1.5-2.5); POTASSIUM 4.3 MEQ/L (3.5-5.1)
[2016-08-15] MEDS: LEVOTHYROXINE SODIUM 112 MCG TAB PO SCH (06:39)
[2016-08-15] MEDS: DOXAZOSIN MESYLATE 4 MG TAB PO SCH (07:51)
[2016-08-15] MEDS: oxyCODONE/ACETAMINOPHEN 5 MG/325 MG TAB PO PRN (07:51)
[2016-08-15] MEDS: PANTOPRAZOLE SOD 20 MG DELAYED RELEASE TAB PO SCH (07:53)
[2016-08-15] MEDS: SODIUM CHLORIDE 0.9% FLUSH 5 ML FLUSH FLUSH SCH (07:53)
[2016-08-15 08:00] VITALS: BP 146/63; PULSE 75; RESP 17; TEMP 98.4; O2SAT 95
[2016-08-15 08:51] VITALS: RESP 19
[2016-08-15] MEDS ORDERED: SENN8.8L PO (08:56)
[2016-08-15] MEDS ORDERED: PERC5TAB12 PO (08:56)
[2016-08-15] MEDS ORDERED: CIPR-9 PO (08:56)
[2016-08-15] MEDS ORDERED: CARD4TAB2 PO (08:56)
[2016-08-15] MEDS ORDERED: cefTRIAXone INJ 1,000 MG in SODIUM CHLORIDE 0.9% INJ 100 ML IV ONE (09:00)
--- NOTE | 2016-08-19 00:24 | HHI.DS ---
Discharge Summary Admission Date Aug 12, 2016 at 20:31 Discharge Date: Aug 15, 2016 Admitting Diagnosis acute kidney injury, leukocytosis, kidney stone (1) Obstructive uropathy ICD Code: N13.9 (2) Nephrolithiasis ICD Code: N20.0 (3) Left flank pain ICD Code: R10.9 (4) Acute renal failure ICD Code: N17.9 (5) Leukocytosis ICD Code: D72.829 (6) Nausea and vomiting ICD Code: R11.2 Procedures None. Brief History - From Admission Ms. Linares is a 60-year-old female with a past medical history of hypertension , myocardial infarction, type 2 diabetes mellitus, hypothyroidism, and nephrolithiasis who presented to the emergency department today for the third time in the past 3 days for evaluation of severe back and lower abdominal pain, oliguria, and nausea and vomiting. She was diagnosed with left kidney stone on . Abdomen/pelvis CT showed a 4 mm known left ureteral stone now at ureteral vesicular junction causing moderate obstructive uropathy with swelling and perinephric edema of the left kidney. The patient is seen in the ER. She complains of fever occurring two days ago; n /v today; bilateral flank pain but worse on left and exacerbated by movement/ turning in bed; urinated a small amount of urine in the ER; suprapubic pain with attempted urination. Symptoms are reported as severe. Denies liver problems, blood disorders, and coagulation disorders. The patient speaks some [place] (she is from [place]) and was offered professional translation services but adamantly refused them stating she wanted her son who is at the bedside to translate for her. . CBC/BMP: 08/15/16 0522 08/15/16 0522 Imaging Last Impressions Abdomen X-Ray 08/13/16 0000 Signed Impressions: Service Date/Time: Saturday, August 13, 2016 09:20 - CONCLUSION: 1. No acute abdominal abnormality is identified. 2. The 4 mm left UVJ stone identified on yesterday's CT is not appreciated on this examination. Please note that it may not be visualized due to the small size and location. Wale Doss MD Abdomen/Pelvis CT 08/12/16 0000 Signed Impressions: Service Date/Time: Friday, August 12, 2016 19:13 - CONCLUSION: 4 mm known left ureteral stone is now at the UVJ causing moderate obstructive uropathy worse than a few days ago. The obstructive uropathy includes swelling and perinephric edema of the left kidney.. Wale Wright MD PE at Discharge GENERAL: AAOx3, NAD. Patient appears comfortable. SKIN: Warm and dry. HEAD: Normocephalic. EYES: No scleral icterus. No injection or drainage. NECK: Supple, trachea midline. No JVD. CARDIOVASCULAR: Regular rate and rhythm without murmurs, gallops, or rubs. RESPIRATORY: Breath sounds equal bilaterally. No accessory muscle use. GASTROINTESTINAL: Abdomen soft, non-tender, nondistended. Left CVA tenderness much improved.. MUSCULOSKELETAL: No cyanosis, or edema. BACK: Nontender without obvious deformity. No CVA tenderness. Pt update on day of discharge Uses telephone translation service. Patient says she feels much better. Denies improving. Tolerating diet. She would like to go home. Says she will use laxatives for constipation Hospital Course Ms. Linares is a pleasant 60 year old female from [place] with a history of HTN, OH, DM type 2, nephrolithiasis who was admitted on 08/12/2016 due to severe back and lower abdominal pain, oliguria, nausea, vomiting. CT abd/pelvis showed a 4mm known left ureteral stone now at ureteral vesicular junction causing moderate obstructive uropathy with swelling and perinephric edema of the left kidney. She had fever two days prior to this admission. Urology was consulted, and will need to follow-up as an outpatient. During this admission she was treated with ceftriaxone. Urinalysis with only 1 white blood cell, however can still have obstructive pyelonephritis with normal urine. White blood cell count improved from 15-->10 on antibiotics. She'll continue on antibiotics for a 10 day course. For problem-based summary from most recent progress note, please see below. //Left ureteral stone - 4mm in size, obstructive causing perinephric edema of the left kidney - Leukocytosis on admission likely secondary to pain. -Discontinue Ceftriaxone 1g Q24hrs. -Initiate urology consultation. Trial of passage of stone. Patient can likely discharge when pain controlled. We'll need to follow-up with urology as outpatient -Adjust pain medications to avoid daytime somnolence. //Non-anion gap metabolic acidosis. -Likely secondary to acute kidney injury. We'll discontinue fluids. Encourage by mouth intake. Continue to monitor. //Acute kidney injury - likely post renal - Creatinine 1.33 --> 1.15 ==> 1.18 - Continue to monitor. Continue to Hold Lisinopril for now. //Hypothyroidism - Continue 112 microgram Qday. //Constipation. Laxatives ordered. //Headache - acetaminophen as needed. //GERD - continue PPI. Full code. SCDs. Pt Condition on Discharge: Good Discharge Disposition: Discharge Home Discharge Time: > 30 minutes Discharge Instructions DIET: Follow Instructions for: Heart Healthy Diet Activities you can perform: Regular-No Restrictions Follow up Referrals: PCP Follow-up - 3-5 Days Urology - 1 Week with Will Vance MD New Medications: Ciprofloxacin (Cipro) 500 Mg Tab 500 MG PO BID Infection Days 10 Ref 0 TAB Doxazosin (Cardura) 4 Mg Tab 4 MG PO DAILY blood pressure Days 30 TAB Sennosides Liq (Senexon Liq) 8.8 Mg/5 Ml Liq 8.8 MG PO DAILY PRN CONSTIPATION Days 30 ML Changed Medications: Oxycodone-Acetaminophen (Percocet) 5-325 mg Tab 1-2 TAB PO Q4-6H PRN PAIN #20 TAB (Changed from: 1 TAB; Q6H; 15) Continued Medications: Acetaminophen (Tylenol Extra Strength) 500 Mg Tab 1000 MG PO Q6HR PRN PAIN Ref 0 TAB Cholecalciferol (Vitamin D3) 1,000 Unit Chew 1000 UNITS PO DAILY Nutritional Supplement #1 Ref 0 BOTTLE Levothyroxine (Levothyroxine) 112 Mcg Tab 112 MCG PO DAILY #30 Ref 0 TAB Omeprazole (Omeprazole) 20 Mg Tab 20 MG PO DAILY #30 Ref 0 TAB Discontinued Medications: Lisinopril (Lisinopril) 20 Mg Tab 20 MG PO DAILY #30 Ref 0 TAB Dami Chavez MD Aug 19, 2016 00:24
[2016-10-16] MEDS ORDERED: VITA10004 PO (09:33)
[2016-10-25] MEDS ORDERED: AMLO5TAB2 PO (12:22)
[2016-10-25] MEDS ORDERED: TETA1INJ6 IM (12:22)
[2016-10-25] MEDS ORDERED: CIPRHC10A RIGHT EAR (12:22)
[2016-10-25] MEDS ORDERED: LORA-361 PO (12:22)
[2016-10-25] MEDS ORDERED: VENTAER INH (12:22)
[2016-10-29] MEDS ORDERED: AMLO5TAB2 PO (09:14)
[2016-11-29] MEDS ORDERED: ACET-822 (08:18)
[2016-11-29] MEDS ORDERED: CLAR10CA3 PO (08:18)
[2016-11-29] MEDS ORDERED: DULO1CAP2 PO (09:04)
[2016-12-16] MEDS ORDERED: AMLO10TA2 PO (09:04)
[2016-12-16] MEDS ORDERED: LEVO-168 PO (09:04)
== END 2016-08-15 11:39 | disposition home or self-care (01) | DRG 694 ==
LOC: NEPC 16:26 → OBSVTOIN 20:31 → NEDA 20:31 → N07A 23:22
PROVIDERS: ADMIT Internal Medicine; ATTEND Internal Medicine
DX: N13.2 Hydronephrosis with renal and ureteral calculous obstruction (principal); N17.9 Acute kidney failure, unspecified; E87.2 Acidosis; I10 Essential (primary) hypertension; E11.9 Type 2 diabetes mellitus without complications; E03.9 Hypothyroidism, unspecified; J45.909 Unspecified asthma, uncomplicated; K59.00 Constipation, unspecified; K21.9 Gastro-esophageal reflux disease without esophagitis; R51 Headache; Z87.891 Personal history of nicotine dependence
CPT/HCPCS: 74000; 74176; 80048; 80053; 80069; 81001; 83735; 85025; 85610; 85730; 96372; J0696; J1170; J1885; J2405; J7030

== ENCOUNTER 2017-02-11 07:19 | Day surgery (SDC) | payer OTHER ==
[~2017-02-11] VITALS: Ht 160 cm; Wt 97.0 kg
[~2017-02-11 07:19] MED LIST changes: -ACET-703 PO; +ACET-822; +AMIT10TA6 PO; -CHOL100025 PO; +CLAR10CA3 PO; +DULO1CAP2 PO; -LISI-515 PO; +METO25TA3 PO; -OMEP20TA PO; +TETA1INJ6 IM; +VENTAER INH; +VITA10004 PO
[2017-02-11] MEDS ORDERED: IOHEXOL 350 MG/ML 100 ML BTL (for Cath Lab) OTHER ONE (07:20)
[2017-02-11] MEDS ORDERED: NS 1000P @30 MLS/HR (KVO) IV SCH (08:00)
[2017-02-11 08:32] LABS: AUTOMATED NEUTROPHIL # 6.2 TH/MM3 (1.8-7.7); BASOPHIL # 0.1 TH/MM3 (0-0.2); BASOPHIL % 1.2 % (0.0-2.0); EOSINOPHIL # 0.3 TH/MM3 (0-0.4); EOSINOPHIL % 2.5 % (0.0-4.0); HEMATOCRIT 37.3 % (35.0-46.0); HEMO FLAGS DIFF FINAL; LYMPH % 27.4 % (9.0-44.0); LYMPHOCYTE # 2.8 TH/MM3 (1.0-4.8); MEAN CELL VOLUME 87.4 FL (80.0-100.0); MEAN CORPUSCULAR HEMOGLOBIN 28.8 PG (27.0-34.0); MONO % 8.8 % (0.0-8.0); NEUT % 60.1 % (16.0-70.0); PLATELET COUNT 248 TH/MM3 (150-450); RED BLOOD COUNT 4.26 MIL/MM3 (4.00-5.30); RED CELL DISTRIBUTION WIDTH 13.9 % (11.6-17.2); WHITE BLOOD COUNT 10.3 TH/MM3 (4.0-11.0)
[2017-02-11] MEDS ORDERED: HEPARIN-NS/PF INJ 1,000 ML ONE (08:41)
[2017-02-11] MEDS ORDERED: MIDAZOLAM HCL 2 MG/2 ML VIAL ONE (08:42)
[2017-02-11] MEDS ORDERED: NITROGLYCERIN INJ 5 ML ONE (08:42)
[2017-02-11] MEDS ORDERED: HEPARIN SODIUM - IV 10,000 UNITS/10 ML VIAL ONE (08:42)
[2017-02-11] MEDS ORDERED: VERAPAMIL HCL 5 MG/2 ML VIAL ONE (08:42)
[2017-02-11 08:43] VITALS: BP 140/74; PULSE 65; RESP 18; TEMP 97.9; O2SAT 98
[2017-02-11 08:44] LABS: APTT (PATIENT) 27.5 SEC (24.3-30.1); INTERNATIONAL NORMALIZED RATIO 0.9 RATIO; PROTHROMBIN TIME - PATIENT 10.4 SEC (9.8-11.6)
[2017-02-11 08:51] LABS: POTASSIUM 4.3 MEQ/L (3.5-5.1)
--- NOTE | 2017-02-11 09:29 | CATHPROC ---
[facility] HIS Report Study Information Study Number Admission Scheduled Start Study Start [id number] Feb 11 2017 7:19AM 02/11/2017 Feb 11 2017 8:32AM [place] Service Cardiac Catheterization Admit Source Facility Department Other [facility] - Painting Technician Physician and Clinical Staff Initial Radha Jaeger Electronic Gluer Lyndsay Barksdale,RN Recorder Donta Randhawa RCIS(BS) Scrub Lyndsay Simmons,RT(R) Procedures Performed Procedure Location (Site) Vessel Name Coronary Angiograms LCA Left Coronary Coronary Angiograms RCA Right Coronary L Heart Cath Equipment Time Screen Printing Inspector Description Size Mfg Part Number Used/Scraped TRANSDUCER, TRUWAVE [id number] 08:57 WILKINS GARZA * Used W/STOCKCOCK *[id number] *[id number] *[id number] *[id number] [id number] *[id number] 08:57 [employer] INDUSTRIES PACK, CCL CUSTOM * Used *[id number] 08:57 [employer] SUPPORT, ARTERIAL ADULT [id number] *[id number] Used [id number] 08:57 [employer] PACER PEN, SKIN DUAL W/ RULER * Used *[id number] BAND, RADIAL COMPRESSION TR [id number] 09:15 [employer] 29CM Used LARGE 29 *[id number] 08:57 MAINtag WIRE, EXCHANGE 260CM 3MMJ 260CM Used *[id number] 08:57 NAMIC MANIFOLD, 4 PORT * Used *[id number] 08:57 NAMIC TUBING, HIGH PRESSURE 20" 20" Used *[id number] 08:56 [employer] OMNIPAQUE, 350 MG, 150ML 150ML [id number] Used 08:57 [employer] OMNIPAQUE, 350 MG, 150ML 150ML [id number] Used [id number] 08:57 [employer]UCAS [employer] BLANKET,WARM AIR CCL * Used *[id number] CATHETER, FR5 OPTITORQUE [id number] 08:56 [employer] FR 5 Used RADIAL TIG 4.0 *[id number] SHEATH, FR6 TRANSRADIAL [id number] 08:57 [employer] FR 6 Used SLENDER 10CM *[id number] History: Allergies Allergy Reaction Sulfa (Sulfonamide Antibiotics) hydrochlorothiazide lip swelling tamsulosin History: Risk Factors Family History of Hypertension Dyslipidemia Previous CO Previous Heart Failure Premature CAD Yes Yes Yes Yes No Prior Valve Prior PCI Prior CABG Surgery No No No Cerebrovascular Peripheral Artery Chronic Lung On Dialysis Diabetes Diabetes Therapy Disease Disease Disease No No No No Yes Diet History: Symptoms/Diagnosis Selection Items Chest pain History: Stress Tests Stress or Imaging Studies Performed Yes Standard Exercise Stress Test No Stress Echo No Stress Test SPECT Stress Test SPECT Result Stress Test SPECT Ischemia Risk/Extent Yes Positive Intermediate Stress Test CMR No Cardiac CTA Coronary Calcium Score No No History: Other Current Smoker No Labs Hgb (g/dl) Hct (%) RBC (MIL/MM3) WBC (l/cumm) Platelets (thousands) 11.60-17.00 35.00-51.00 4.00-5.90 4.00-11.00 150.00-450.00 12.3 37.3 4.2 10.3 248 Glucose (mg/dl) BUN (mg/dl) Creatinine (mg/dl) BUN:Creatinine (1:x) 74.00-106.00 7.00-18.00 0.50-1.30 10.00-20.00 99 19 0.8 23.8 Na (meq/l) K (meq/l) 136.00-145.00 3.50-5.10 139 4.3 INR (PTT:PT) 0.90-1.10 0.9 CPK-MB (ng/ML) 0.50-3.60 Not Drawn Medication Medication Total Dose (Bolus/Oral) Medication Total Dosage/Unit 1% XYLOCAINE 20 mL NTG (IC) 100 mcg RADIAL COCKTAIL 5 mL (Bolus) VERSED 2 mg Medications (Bolus/Oral) Medication Time Given Dosage/Unit Administered By Reason VERSED 02/11/2017 8:46:00 AM 2 mg Lyndsay Barksdale 2 mg VERSED given in lab by Lyndsay Barksdale, RN in Left Arm via Peripheral IV. Ordered by Angel Coffey 1% XYLOCAINE 02/11/2017 8:53:49 AM 20 mL Patient arrived on 20 mL 1% XYLOCAINE via Subcutaneous. Ntg 200mcg Verapamil 2.5mg Heparin RADIAL COCKTAIL 02/11/2017 8:53:54 AM 5 mL (Bolus) Radha Coffey 2000U Patient arrived on 5 mL (Bolus) RADIAL COCKTAIL via Radial. Using [Solution Name]. Reason: Ntg 100mcg Verapamil 2.5mg Heparin 2000U. NTG (IC) 02/11/2017 9:08:12 AM 100 mcg Radha Coffey 100 mcg NTG (IC) given in lab by Radha Coffey in Right Radial via Peripheral IV. Ordered by Radha Coffey. Medication (Drip) Medication Time Given Dosage/Unit Concentration/Unit Diluent (ml) Solution IV Solutions 02/11/2017 8:33:02 AM 0 mL (IV) 500 NaCl .9 Patient arrived on IV Solutions in Left Arm via Peripheral IV. Pump/Drip Flow = 20 ml/hr using NaCl . 9. Initial Case Assessment Cardiovascular HR Rhythm NIBP Chest Pain 76 SR 156/77 0 Edema Present Skin color Skin None Normal Warm Dry Circulatory - Right Pulses Dorsalis Pedis Femoral Radial 1 1 1 Scale (0,1,2,3,4,d) Circulatory - Left Pulses Dorsalis Pedis Femoral Radial 1 1 Scale (0,1,2,3,4,d) Circulatory - Lower Extremities Color Lower Right Color Lower Left Normal Normal Neurological State Oriented to time-place- Alert Moves all extremities person Respiration - General Respiration Rate SpO2 (%) (B/min) 24 95 Final Case Assessment Cardiovascular HR Rhythm NIBP Chest Pain 76 SR 156/77 0 Edema Present Skin color Skin None Normal Warm Dry Circulatory - Right Pulses Dorsalis Pedis Femoral Radial 1 1 1 Scale (0,1,2,3,4,d) Circulatory - Left Pulses Dorsalis Pedis Femoral Radial 1 1 Scale (0,1,2,3,4,d) Circulatory - Lower Extremities Color Lower Right Color Lower Left Normal Normal Neurological State Oriented to time-place- Alert Moves all extremities person Respiration - General Respiration Rate SpO2 (%) (B/min) 24 95 Chronological Log Time Study Chronological Log 8:32:26 Patient arrived via Bed. 8:32:28 Patient Name, D.O.B, / Armband Verified By R.N. 8:32:29 Consent signed by the physician and the patient and verified by the Painting Technician staff. 8:32:29 Pre-op and post- op instructions given; patient acknowledges understanding of instructions. 8:32:51 Allens test performed on the right radial and ulnar artery. 8:32:53 Patient has been NPO for Less than 6Hrs. 8:32:55 Skin Breakdown- 8:32:56 Patient Warmer Placed on the Table. 8:33:01 A # 22 IV was noted in the Upper Arm (left). Grade = 0 8:33:02 Patient arrived on IV Solutions in Left Arm via Peripheral IV. Pump/Drip Flow = 20 ml/hr us ing NaCl .9. 8:33:03 History and physical on the chart or being dictated. Assessment: Initial Case, HR=76 BPM, Rhythm=SR, UOWB=586/77 mmhg, Chest Pain=0, Edema=None, [place] r=Normal, Skin = Warm, Dry Right Pulses: Solomon Ped=1, Femoral=1, Radial=1 Left Pulses: Solomon Ped=1, Femoral=1 8:33:04 Lower Right Extremities: Color=Normal Lower Left Extremities: Color=Normal Neurological: State=Alert, Ox3, LIND Respiration: Resp=24 B/min, SpO2=95 % 8:40:00 MD arrived. Vitals capture started with the following parameters, Patient=Adult, Interval=5 min, Initial Pre vaefg=097 mmHg, 8:41:25 Deflation Rate=5 mmHg, Cuff placed on Left Leg 8:42:41 HR=65 bpm, VPTL=702/85 mmhg, IvY3=393.0 %, Resp=22 B/min, Pain=0, Tereso=10, Russell=2 8:46:00 2 mg VERSED given in lab by Lyndsay Barksdale, HENNY in Left Arm via Peripheral IV. Ordered by Radha Deshpande. 8:47:07 HR=69 bpm, FDOM=463/77 mmhg, MaA1=669.0 %, Resp=23 B/min, Pain=0, Tereso=10, Russell=2 Time Out. Correct patient, correct procedure,correct physician, ,power injector loaded or not lo aded with contrast with 8:51:26 surgical team present. Time Out Concurred by MD, individual staff and SHIFT SUPERVISOR MELTING in procedure 8:51:56 Pressure channel 1 zeroed. 8:52:00 Case Start 8:52:08 HR=72 bpm, OHMC=021/77 mmhg, SpO2=97.0 %, Resp=22 B/min, Pain=0, Tereso=10, Russell=2 8:53:49 Patient arrived on 20 mL 1% XYLOCAINE via Subcutaneous. 8:53:49 Access site was RIGHT Radial Artery. A SHEATH, FR6 TRANSRADIAL SLENDER 10CM FR 6 was advanced into the Radial (right) using the Percu taneous 8:53:52 technique. Patient arrived on 5 mL (Bolus) RADIAL COCKTAIL via Radial. Using [Solution Name]. Reason: Ntg 1 00mcg Verapamil 8:53:54 2.5mg Heparin 2000U. A CATHETER, FR5 OPTITORQUE RADIAL TIG 4.0 FR 5 was advanced over a wire. OMNIPAQUE, 350 MG, 150M L 150ML 8:53:55 was used for injections. 8:55:46 Reference ECG taken Recorded Pressure: Ao, HR=72, Condition=Condition 1 8:56:05 (Aorta) Ao 115/65/90 8:57:05 HR=75 bpm, VMJI=791/76 mmhg, SpO2=94.0 %, Resp=28 B/min, Pain=0, Tereso=10, Russell=2 After removing the current catheter a JL 3.5 INFINITI CATHETER FR 6 was advanced over a WIRE, EX CHANGE 260CM 9:01:02 3MMJ 260CM. 9:01:14 The LCA was injected and visualized at various angles. OMNIPAQUE, 350 MG, 150ML 150ML used. Recorded Pressure: Ao, HR=74, Condition=Condition 1 9:01:47 (Aorta) Ao 130/63/94 9:02:00 HR=75 bpm, IYYZ=245/74 mmhg, SpO2=97.0 %, Resp=61 B/min, Pain=0, Tereso=10, Russell=2 After removing the current catheter a JR 4.0 INFINITI CATHETER FR 6 was advanced over a WIRE, EX CHANGE 260CM 9:03:07 3MMJ 260CM. 9:07:46 HR=78 bpm, APXK=330/82 mmhg, SpO2=97.0 %, Resp=34 B/min, Pain=0, Tereso=10, Russell=2 9:08:12 100 mcg NTG (IC) given in lab by Radha Coffey in Right Radial via Peripheral IV. Ordered by Radha Coffey. After removing the current catheter a JR 4.0 INFINITI CATHETER FR 5 was advanced over a WIRE, EX CHANGE 260CM 9:08:30 3MMJ 260CM. 9:09:42 The RCA was injected and visualized at various angles. OMNIPAQUE, 350 MG, 150ML 150ML used. After removing the current catheter a PIGTAIL STR. INFINITI CATHETER FR 5 was advanced over a WI RE, EXCHANGE 9:10:05 260CM 3MMJ 260CM. Recorded Pressure: LV, HR=73, Condition=Condition 1 9:11:29 (Left Ventricle) LV 142/5/12 Recorded Pressure: LV, Ao, HR=73, Condition=Condition 1 9:11:55 (Left Ventricle) LV 125/12/24, (Aorta) Ao 144/80/111 9:12:06 HR=75 bpm, NQJN=453/80 mmhg, SpO2=95.0 %, Resp=28 B/min, Pain=0, Tereso=10, Russell=2 9:13:16 Catheter was removed 9:13:29 Case End Assessment: Final Case, HR=76 BPM, Rhythm=SR, HYKA=886/77 mmhg, Chest Pain=0, Edema=None, [place] r=Normal, Skin = Warm, Dry Right Pulses: Solomon Ped=1, Femoral=1, Radial=1 Left Pulses: Solomon Ped=1, Femoral=1 9:13:41 Lower Right Extremities: Color=Normal Lower Left Extremities: Color=Normal Neurological: State=Alert, Ox3, LIND Respiration: Resp=24 B/min, SpO2=95 % Radial Compression Device Used. ~VOLUME ML~ mLs of air placed in BAND, RADIAL COMPRESSION TR L ARGE 29 9:14:26 29CM. Affected hand ~O2 SATURATION~ % O2 saturation. 9:14:45 Sterile dressing applied to site 9:14:46 No case complications noted. 9:14:47 Cine recording checked. 9:14:50 Bedside Report will be given. 9:14:52 Contrast Scanned 9:14:55 A Left Heart Cath was performed. 9:17:05 HR=72 bpm, PMSQ=382/72 mmhg, SpO2=94.0 %, Resp=50 B/min, Pain=0, Tereso=10, Russell=2 9:25:53 Patient moved to stretcher End Study - Contrast Media Used In Study Contrast Total Opened (mL) Total Used (mL) Total Wasted (mL) Omnipaque 100 100 0 End Study - Maximum Contrast Load Max Contrast Load (mL) 606.3 End Study - Radiation Exposure Fluoro Time (minutes) 8.1 End Study - Patient Disposition Complications Transferred To No Outpatient Bed
[2017-02-11] MEDS ORDERED: SODIUM CHLOR 0.9% 1000 ML INJ 400 ML IV ONE (09:30)
--- NOTE | 2017-02-11 09:44 | MA ---
cc: JENSEN SHARMA M.D. DATE 02/11/2017 INDICATIONS The patient is a 61-year-old with persistent chest pain, abnormal stress test for ischemia. PROCEDURE Left heart catheterization, angiogram, left ventriculogram. PROCEDURE NOTE After obtaining informed consent, the patient in a fasting state was brought to the concrete mixing plant laborer. The right radial area was sterilized and draped with sterile drapes. 1% Xylocaine was used to locally anesthetize the area. A 6-Croatian sheath was used to access the right radial artery and a JL-3.5 catheter was used to intubate the left main and JR-4.5 Croatian to intubate the right coronary artery, pigtail to perform left ventriculogram and pressure measurements. At the end of the procedure, sheath taken out and TR Band applied, sent back to her room in stable condition. No complications. CORONARY ANGIOGRAM The left main coronary artery is very short, bifurcates into LAD and left circumflex coronary artery. The left main has no significant disease. The left anterior descending coronary artery and its branches have no significant disease. The left circumflex coronary artery and its branches have no significant disease. The right coronary artery is a medium-sized vessel, is dominant with no significant disease. LEFT VENTRICULOGRAM The ejection fraction is estimated to be 55%. No pressure gradient across the aortic valve. The left ventricular end-diastolic pressure is 14. Aortic pressure is 140/80. DISPOSITION Medical management and reassurance to continue. The patient was sent back to back to her room in stable condition. POSTOPERATIVE DIAGNOSIS Persistent chest pain with no significant coronary artery disease. MD LEXX Coley/TRISH /9:16 AM /9:33 AM
[2017-02-11] MEDS ORDERED: ACETAMINOPHEN 325 MG TAB PO ONE (11:00)
--- NOTE | 2017-02-12 20:20 | EKG ---
Date Performed: 02/11/2017 Time Performed: 08:15:06 PTAGE: 61 years EKG: Sinus rhythm . Inferior infarct - age undetermined Abnormal ECG PREVIOUS TRACING : 01/08/2015 03.48 Compared to prior tracing no significant change DOCTOR: Karen Solano Interpretating Date/Time 02/12/2017 20:19:28
[2017-03-07] MEDS ORDERED: LEVO-168 PO (14:25)
== END 2017-02-11 13:54 | disposition home or self-care (01) ==
LOC: HDOC 07:19 → HDIC 07:20 → HDOC 13:54
PROVIDERS: ATTEND Internal Medicine Cardiovascular Disease
DX: R07.9 Chest pain, unspecified (principal); R94.39 Abnormal result of other cardiovascular function study; I10 Essential (primary) hypertension; E66.9 Obesity, unspecified; Z68.37 Body mass index [BMI] 37.0-37.9, adult; Z01.818 Encounter for other preprocedural examination; Z01.810 Encounter for preprocedural cardiovascular examination
CPT/HCPCS: 80048; 85025; 85610; 85730; 93005; 93458; 93567; C1769; C1893; J1644; J2250; J3010; Q9967

== ENCOUNTER 2017-10-16 14:07 | Emergency (ER) | payer OTHER ==
[~2017-10-16 14:07] MED LIST changes: -ACET-822; -AMIT10TA6 PO; -DULO1CAP2 PO; +LISI-519 PO; -METO25TA3 PO; -TETA1INJ6 IM; -VITA10004 PO
[2017-10-16 14:23] VITALS: BP 141/64; PULSE 77; RESP 18; TEMP 98.4; O2SAT 98
--- NOTE | 2017-10-16 15:15 | RADRPT ---
EXAM DATE/TIME: 10/16/2017 14:57 [place] COMPARISON: No previous studies available for comparison. INDICATIONS : Right side chest pain for 2 days. MEDICAL HISTORY : Cardiovascular disease. Hypertension. Diabetes mellitus type 2. SURGICAL HISTORY : Cholecystectomy. ENCOUNTER: Initial ACUITY: 2 days PAIN SCORE: 9/10 LOCATION: Right chest FINDINGS: PA and lateral views of the chest demonstrate the lungs to be symmetrically aerated without evidence of mass, infiltrate or effusion. The cardiomediastinal contours are unremarkable. Degenerative ross es and scoliosis of the thoraco-lumbar spine are noted. CONCLUSION: 1. No acute cardiopulmonary disease. 2. Degenerative changes and scoliosis of the thoraco-lumbar spine. Moose Barlow MD on October 16, 2017 at 15:12 Board Certified Radiologist. This report was verified electronically.
--- NOTE | 2017-10-16 15:37 | PD ---
HPI Chief Complaint: Pain: Acute or Chronic Time Seen by Provider: 15:21 Travel History International Travel<30 days: No Contact w/Intl Traveler<30days: No Traveled to known affect area: No History of Present Illness HPI 61-year-old female with PMH of hypertension presents to the ED for evaluation of 6/10 right-sided chest pain. Gradual onset over the last 2 days. No radiation. Worsened by touch and certain movements. Patient denies injury to the area, recent overuse, associated shortness of breath, palpitations, nausea, vomiting, diaphoresis. She states that she had a stress test and heart cath in the fall of last year. She sees a local sales effectiveness manager but is unsure of the physician's name. No treatment attempted at home. PFSH Past Medical History Depression: Yes Cancer: No Cardiovascular Problems: Yes Chest Pain: No Diabetes: Yes (PREDIABETIC) Patient Takes Glucophage: No Diminished Hearing: No Gastrointestinal Disorders: No Glaucoma: No Genitourinary: Yes Hepatitis: Yes Hiatal Hernia: Yes Hypertension: Yes Implanted Vascular Access Dvce: No Kidney Stones: Yes Musculoskeletal: No Neurologic: No Psychiatric: Yes Respiratory: No Integumentary: No Radiation Therapy: Yes Thyroid Disease: Yes (hypothyroid) ?: Not Past Surgical History Abdominal Surgery: Yes (GALLBLADDER REMOVAL, APPENDIX) Section: Yes Cholecystectomy: Yes Endocrine Surgery: Yes (THYROIDECTOMY) Eye Surgery: Yes (LASIC) Genitourinary Surgery: Yes (KIDNEY STONE) Gynecologic Surgery: Yes (BREAST 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) Other Surgery: Yes Social History Alcohol Use: No Tobacco Use: No Substance Use: No Allergies-Medications (Allergen,Severity, Reaction): Coded Allergies: hydrochlorothiazide (Verified Allergy, Severe, lip swelling, 10/16/17) tamsulosin (Verified Allergy, Severe, 10/16/17) Reported Meds & Prescriptions Reported Meds & Active Scripts Active Lisinopril 5 Mg Tab 5 Mg PO DAILY Percocet (Oxycodone-Acetaminophen) 5-325 mg Tab 1-2 Tab PO Q4-6H PRN Reported Selenium 200 Mcg Tab 200 Mg PO DAILY Carafate (Sucralfate) 1 Gram Tab 1 Gm PO DAILY On empty stomach Levothyroxine (Levothyroxine Sodium) 137 Mcg Tab 137 Mcg PO DAILY Claritin (Loratadine) 10 Mg Cap 10 Mg PO DAILY Review of Systems Except as stated in HPI: all other systems reviewed are Neg Physical Exam Narrative GENERAL: Well-nourished, well-developed obese female in no acute distress. SKIN: Focused skin assessment warm/dry. Port wine stain on the right cheek and lower lip. HEAD: Normocephalic. EYES: No scleral icterus. No injection or drainage. NECK: Supple, trachea midline. No JVD or lymphadenopathy. CARDIOVASCULAR: Regular rate and rhythm without murmurs, gallops, or rubs. CHEST: Reproducible pain to touch in the right upper chest without deformity or crepitus. No retractions. RESPIRATORY: Breath sounds clear and equal bilaterally. No accessory muscle use. GASTROINTESTINAL: Abdomen soft, non-tender, nondistended. Active bowel sounds. MUSCULOSKELETAL: No cyanosis, or edema. Moves extremities spontaneously. BACK: Nontender without obvious deformity. No CVA tenderness. Data Data Last Documented VS Vital Signs Date Time Temp Pulse Resp B/P (MAP) Pulse Ox O2 Delivery O2 Flow Rate FiO2 10/16/17 21:30 10/16/17 18:28 70 18 98 Room Air 10/16/17 14:23 98.4 Orders Orders Electrocardiogram (10/16/17 14:27) Troponin I (10/16/17 14:27) Chest, Pa & Lat (10/16/17 14:27) Complete Blood Count With Diff (10/16/17 15:34) Comprehensive Metabolic Panel (10/16/17 15:34) Magnesium (Mg) (10/16/17 15:34) Prothrombin Time / Inr (Pt) (10/16/17 15:34) Act Partial Throm Time (Ptt) (10/16/17 15:34) Ecg Monitoring (10/16/17 15:34) Bilateral Bp Monitoring (10/16/17 15:34) Iv Access Insert/Monitor (10/16/17 15:34) Oximetry (10/16/17 15:34) Aspirin Chew (Aspirin Chew) (10/16/17 15:45) Sodium Chloride 0.9% Flush (Ns Flush) (10/16/17 15:45) Creatine Kinase (Cpk) (10/16/17 19:18) Ed Discharge Order (10/16/17 20:23) Labs Laboratory Tests Test 10/16/17 15:45 10/16/17 17:27 Blood Urea Nitrogen 19 MG/DL Creatinine 0.79 MG/DL Random Glucose 83 MG/DL Total Protein 7.9 GM/DL Albumin 3.4 GM/DL Calcium Level 9.2 MG/DL Magnesium Level 2.3 MG/DL Alkaline Phosphatase 114 U/L Aspartate Amino Transf (AST/SGOT) 23 U/L Alanine Aminotransferase (ALT/SGPT) 33 U/L Total Bilirubin 0.2 MG/DL Sodium Level 137 MEQ/L Potassium Level 4.1 MEQ/L Chloride Level 105 MEQ/L Carbon Dioxide Level 24.0 MEQ/L Anion Gap 8 MEQ/L Estimat Glomerular Filtration Rate 74 ML/MIN Total Creatine Kinase 78 U/L Troponin I LESS THAN 0.02 NG/ML White Blood Count 10.7 TH/MM3 Red Blood Count 4.35 MIL/MM3 Hemoglobin 12.6 GM/DL Hematocrit 37.6 % Mean Corpuscular Volume 86.4 FL Mean Corpuscular Hemoglobin 28.9 PG Mean Corpuscular Hemoglobin Concent 33.5 % Red Cell Distribution Width 13.3 % Platelet Count 231 TH/MM3 Mean Platelet Volume 8.3 FL Neutrophils (%) (Auto) 60.9 % Lymphocytes (%) (Auto) 27.3 % Monocytes (%) (Auto) 9.6 % Eosinophils (%) (Auto) 1.5 % Basophils (%) (Auto) 0.7 % Neutrophils # (Auto) 6.5 TH/MM3 Lymphocytes # (Auto) 2.9 TH/MM3 Monocytes # (Auto) 1.0 TH/MM3 Eosinophils # (Auto) 0.2 TH/MM3 Basophils # (Auto) 0.1 TH/MM3 CBC Comment DIFF FINAL Differential Comment Prothrombin Time 10.7 SEC Prothromb Time International Ratio 1.1 RATIO Activated Partial Thromboplast Time 26.8 SEC [facility] Medical Decision Making Medical Screen Exam Complete: Yes Emergency Medical Condition: Yes Differential Diagnosis Chest wall pain versus angina versus muscular skeletal pain versus less likely ACS versus other Narrative Course 61-year-old female with PMH of hypertension presents to the ED for evaluation of 6/10 right-sided chest pain. Gradual onset over the last 2 days. Worsened by touch and certain movements. Patient denies injury to the area, recent overuse, associated shortness of breath, palpitations, nausea, vomiting, diaphoresis. She states that she had a stress test and heart cath in the fall of last year. She sees a local sales effectiveness manager but is unsure of the physician's name. Vitals reviewed. On exam this is an obese female with reproducible tenderness of the right chest wall. Exam otherwise unremarkable. Patient was administered 324 mg aspirin chew. EKG without acute changes, reviewed by Dr. Olson. CBC unremarkable. INR 1.1. CMP unremarkable. Cardiac enzymes negative 1. CXR with no acute cardiopulmonary disease. I discussed the results of the workup with the patient. I recommended RICE therapy, return to normal, gentle activity, follow with the primary care. She is agreeable to care plan. She requested a copy of her lab results which were provided. She is stable and discharged home. Diagnosis Primary Impression: Musculoskeletal chest pain Referrals: Primary Care Physician Additional Instructions: Rest, hydrate. Return to normal, gentle activity as tolerated. Take at home medications as previously prescribed. OTC pain medications as directed on the label, as needed for continued pain. Warm or cold compresses applied to the area of pain 10-15 minutes per day a few sessions per day may help to improve your symptoms. Follow with your primary care provider. Return to the ED for worsening symptoms or any urgent or emergent medical condition. Disposition: 01 DISCHARGE HOME Condition: Stable Lissette Joyce Oct 16, 2017 15:37
[2017-10-16 15:42] VITALS: O2SAT 98
[2017-10-16] MEDS ORDERED: ASPIRIN 81 MG CHEW TAB PO ONE (15:45)
[2017-10-16] MEDS ORDERED: SODIUM CHLORIDE 0.9% FLUSH 10 ML FLUSH IVF PRN (15:45)
[2017-10-16 16:22] LABS: ALBUMIN 3.4 GM/DL (3.4-5.0); BLOOD UREA NITROGEN 19 MG/DL (7-18); CALCIUM 9.2 MG/DL (8.5-10.1); CHLORIDE 105 MEQ/L (98-107); CREATININE 0.79 MG/DL (0.50-1.00); GLOMERULAR FILTRATION RATE 74 ML/MIN (>89); GLUCOSE,RANDOM 83 MG/DL (74-106); MAGNESIUM 2.3 MG/DL (1.5-2.5); SODIUM (NA) 137 MEQ/L (136-145)
[2017-10-16 16:24] LABS: ALT (GPT) 33 U/L (10-53)
[2017-10-16 16:27] LABS: ALKALINE PHOSPHATASE 114 U/L (45-117); AST (GOT) 23 U/L (15-37); TOTAL BILIRUBIN ADULT 0.2 MG/DL (0.2-1.0); TOTAL PROTEIN 7.9 GM/DL (6.4-8.2)
[2017-10-16 18:22] LABS: AUTOMATED NEUTROPHIL # 6.5 TH/MM3 (1.8-7.7); BASOPHIL # 0.1 TH/MM3 (0-0.2); BASOPHIL % 0.7 % (0.0-2.0); EOSINOPHIL # 0.2 TH/MM3 (0-0.4); EOSINOPHIL % 1.5 % (0.0-4.0); HEMATOCRIT 37.6 % (35.0-46.0); HEMOGLOBIN 12.6 GM/DL (11.6-15.3); LYMPH % 27.3 % (9.0-44.0); LYMPHOCYTE # 2.9 TH/MM3 (1.0-4.8); MEAN CELL VOLUME 86.4 FL (80.0-100.0); MEAN CORPUSCULAR HEMOGLOBIN 28.9 PG (27.0-34.0); MEAN CORPUSCULAR HGB CONC 33.5 % (32.0-36.0); MEAN PLATELET VOLUME 8.3 FL (7.0-11.0); MONO % 9.6 % (0.0-8.0); NEUT % 60.9 % (16.0-70.0); PLATELET COUNT 231 TH/MM3 (150-450); RED BLOOD COUNT 4.35 MIL/MM3 (4.00-5.30); RED CELL DISTRIBUTION WIDTH 13.3 % (11.6-17.2); WHITE BLOOD COUNT 10.7 TH/MM3 (4.0-11.0)
[2017-10-16 18:28] VITALS: BP 126/60; PULSE 70; RESP 18; O2SAT 98
[2017-10-16] MEDS ORDERED: CARA1TAB6 PO (18:30)
[2017-10-16] MEDS ORDERED: SELE200T17 PO (18:30)
[2017-10-16] MEDS ORDERED: LEVO137T2 PO (18:30)
[2017-10-16 18:50] LABS: INTERNATIONAL NORMALIZED RATIO 1.1 RATIO; PROTHROMBIN TIME - PATIENT 10.7 SEC (9.8-11.6)
--- NOTE | 2017-10-17 13:53 | EKG ---
Date Performed: 10/16/2017 Time Performed: 14:32:43 PTAGE: 61 years EKG: Sinus rhythm LOW QRS VOLTAGE IN PRECORDIAL LEADS INCOMPLETE RIGHT BUNDLE BRANCH BLOCK BORDERLINE ECG PREVIOUS TRACING 02/11/17 Since the previous tracing, no significant change noted DOCTOR: Chau Chaudhary Interpretating Date/Time 10/17/2017 13:49:02
== END 2017-10-16 21:35 | disposition home or self-care (01) ==
LOC: NEPE 14:07
DX: R07.89 Other chest pain (principal); I45.10 Unspecified right bundle-branch block; M41.9 Scoliosis, unspecified; M51.35 Other intervertebral disc degeneration, thoracolumbar region; I10 Essential (primary) hypertension; F32.9 Major depressive disorder, single episode, unspecified; R73.03 Prediabetes; E03.9 Hypothyroidism, unspecified; Z87.442 Personal history of urinary calculi
CPT/HCPCS: 71046; 80053; 82550; 83735; 84484; 85025; 85610; 85730; 93005